=== PATIENT | female | born 2000 | race Caucasian/White ===

== ENCOUNTER 2021-08-22 17:00 | Outpatient (RCR) | payer MEDICAID, SELFPAY | END 2021-09-04 17:34 | disposition home or self-care (01) | LOC: HO.PT 17:00 | PROVIDERS: PCP General Practice; Visit Provider General Practice | DX: M54.9 Dorsalgia, unspecified (principal) | CPT/HCPCS: 97014; 97110; 97161; 97530 ==

== ENCOUNTER 2021-09-06 19:52 | Emergency (ER) | payer MEDICAID, SELFPAY ==
[2021-09-06 20:05] VITALS: BP 128/81; PULSE 95; RESP 18; TEMP 36.4; O2SAT 99; BMI 26.4
[2021-09-06 22:24] VITALS: BP 122/89; PULSE 82; RESP 16; O2SAT 98
--- NOTE | 2021-09-06 23:23 | ED.NAVMDI ---
HPI - Nausea/Vomiting/Diarrhea General Chief complaint: Nausea/Vomiting/Diarrhea Stated complaint: Diarrhea Time Seen by Provider: 09/06/21 23:16 Source: patient Mode of arrival: ambulatory Limitations: no limitations History of Present Illness HPI Narrative: This is a 21-year-old female no known medical history presenting to the emergency department with complaints of diarrhea with blood mixed into it x1 day. Patient reports that some other family members are having the same symptoms after eating spaghetti with beef and at last night. She tells me she has had 2 episodes of diarrhea on 1 of them had blood mixed into the me other 1 had streaks of blood and some blood in the toilet seat. She tells me this has never happened to her before. She denies abdominal pain but tells me that when she is having a bowel movement she feels a crampy sensation in her abdomen. She denies chest pain, shortness of breath, fevers, chills, nausea, vomiting, abdominal pain, back pain, changes in urination, dizziness, weakness. MD elicited complaint: diarrhea Onset (ago): day(s) (1) Description of vomiting: watery and blood-streaked Description of diarrhea: blood Associated nausea: No Associated abdominal pain: No Location of pain: none Exacerbating factors: none Relieving factors: none Associated symptoms: denies other symptoms Related Data Allergies Allergy/AdvReac Type Severity Reaction Status Date / Time No Known Allergies Allergy Unverified 02/03/20 17:11 [No Known Allergies*] Review of Systems Review of Systems: Constitutional : No Weight loss, No Fever, No Chills, No Fatigue, No Malaise ENT/Mouth : No sore throat, No Rhinorrhea Eyes: No Eye Pain, No Swelling, No Redness Cardiovascular : No Chest Pain, No SOB, No Dyspnea on Exertion, No Orthopnea, No Edema, No Palpitations Respiratory : No Cough, No Sputum, No Wheezing Gastrointestinal : No Nausea, No Vomiting, + Diarrhea, No Constipation, No abdominal Pain, No Hematochezia, No Melena Genitourinary : No Dysuria, No Urinary Frequency, No Hematuria, Musculoskeletal : No joint pain, No Myalgias, No Joint Swelling Skin : No Skin Lesions, No rash Neuro : No Weakness, No Numbness, No Dizziness, No Headache Psych : No Anxiety/Panic, No Depression All other systems reviewed and are negative Yes all other systems are reviewed and are negative Gastrointestinal: Gastrointestinal: Denies nausea PMFSH Past Medical History Attestation statement: The following information was validated with the patient. Source: old records reviewed and nursing notes reviewed Social History Social History Advance Directives: No Physical Exam Vital Signs: Vital Signs: Last Vital Signs Temp 97.5 F 09/06/21 20:05 Pulse 82 09/06/21 22:24 Resp 16 09/06/21 22:24 BP 122/89 09/06/21 22:24 Pulse Ox 98 09/06/21 22:24 BMI result Body Mass Index 26.4 Vital signs stable. Appearance: Alert.? Oriented X3.? No acute distress.? Head: Normocephalic, atraumatic, no step-offs or deformities Eyes: Pupils equal, round and reactive to light.? ENT: Pharynx normal.? Neck: Normal inspection.? Neck supple.? CVS: Normal heart rate and rhythm.? Pulses normal.? Respiratory: No respiratory distress.? Breath sounds normal.? Abdomen: Soft and nontender.? Rectal exam: Refused Skin: Skin warm and dry.? Normal skin color.? Normal skin turgor.? Extremities: No lower extremity edema.? No calf ttp. 5/5 strength to bilateral upper and lower extremities Back: No midline tenderness, no C-spine tenderness, full range of motion, no CVA tenderness bilaterally Neuro: Oriented X 3.? No motor deficit.? No sensory deficit. CN 2-12 intact Course Reevaluation(s) Reevaluation #1: CBC within normal limits. Chemistry with no acute electrolyte abnormalities. Urine clean. RUIZ negative. COVID negative. Patient tells me she does not feel like she can have a bowel movement any time soon. Patient's hemoglobin and hematocrit stable, patient tells me she feels well, not having any dizziness, weakness, pallor. Advised her to return with new or worsening symptoms. Upon discharge patient tells me she is feeling fine no abdominal pain, denies chest pain, shortness of breath, weakness, dizziness. Vital signs are stable. This is likely colitis. Time: 00:31 MDM - Nausea/Vomiting/Diarrhea MDM Narrative Medical decision making narrative: 2344 21-year-old female presents with bloody diarrhea x1 day. Reports family members at home with similar symptoms. Physical examination benign. Patient refused a rectal exam. Plan at this time is basic labs, Patient does not have tenderness on palpation, no need for abdominal CT at this time. Medical Records Attestation: I reviewed the patient's medical records. Lab Data Attestation: I reviewed the patient's lab results. Result diagrams: 09/06/21 23:37 09/06/21 23:37 Labs: Lab Results 09/06/21 09/06/21 09/06/21 Range/Units 23:37 23:37 23:37 WBC 6.9 (4.8-10.8) X10*3/uL RBC 4.82 (4.20-5.50) X10*6/uL Hgb 12.8 (12.0-16.0) g/dl Hct 40.3 (37.0-47.0) % MCV 83.6 (80.0-98.0) fL MCH 26.6 L (27.0-33.0) pg MCHC 31.8 (31.0-35.0) g/dl RDW 12.2 (11.0-16.0) % Plt Count 373 (160-400) X10*3/uL MPV 9.5 (9.4-12.3) fL Immature Gran % (Auto) 0.3 (0.0-0.4) % Neut % (Auto) 37.4 L (45-73) % Lymph % (Auto) 48.9 H (20-40) % [place] % (Auto) 10.7 (2-11) % Eos % (Auto) 1.8 (0-4) % Baso % (Auto) 0.9 (0-2) % Lymph # (Auto) 3.4 (1.2-4.9) X10*3/uL [place] # (Auto) 0.7 (0.1-1.2) X10*3/uL Eos # (Auto) 0.1 (0.0-0.4) X10*3/uL Baso # (Auto) 0.1 (0.0-0.2) X10*3/uL Abs Immat Gran (auto) 0.02 (0.00-0.03) X10*3/uL Absolute Neuts (auto) 2.6 (2.0-8.3) x10*3/uL Absolute Nucleated RBC 0.000 (0.0-0.012) X10*3/uL Nucleated RBC % (auto) 0.0 (0.0-0.2) /100WBC Sodium 138 (135-145) mmol/L Potassium 4.2 (3.3-5.1) mmol/L Chloride 107 (96-108) mmol/L Carbon Dioxide 26 (22-29) mmol/L Anion Gap 9 L (12-20) BUN 12 (9-16) mg/dL Creatinine 0.72 (0.5-1.4) mg/dL Estim Creat Clear Calc 106.3 Estimated GFR > 60 Random Glucose 79 (60-115) mg/dL Calcium 9.4 (8.4-10.2) mg/dL Magnesium 2.0 (1.6-2.6) mg/dL Total Bilirubin 0.5 (0.0-1.0) mg/dL AST 19 (5-31) U/L ALT 19 (0-31) U/L Alkaline Phosphatase 90 (39-117) U/L Total Protein 7.3 (6.5-8.0) g/dL Albumin 4.2 (3.5-5.0) g/dL Lipase 6 L (8-78) U/L Urine Color Urine Appearance Urine pH (5.0-8.0) Ur Specific [place] (1.005-1.025) Urine Protein (NEG-TRACE) MG/DL Urine Glucose (UA) (NEG) MG/DL Urine Ketones (NEG) MG/DL Urine Blood (NEG) Urine Nitrite (NEG) Ur Leukocyte Esterase (NEG) Urine Opiates Screen (Not Detect) Urine Fentanyl Screen (Not Detect) Ur Barbiturates Screen (Not Detect) Ur Phencyclidine Scrn (Not Detect) Ur Amphetamines Screen (Not Detect) U Benzodiazepines Scrn (Not Detect) Urine Cocaine Screen (Not Detect) U Marijuana (THC) Screen (Not Detect) COVID-19 (YENNY) Negative (Negative) COVID-19 Clin Com See Note 09/06/21 09/06/21 Range/Units 23:37 23:37 WBC (4.8-10.8) X10*3/uL RBC (4.20-5.50) X10*6/uL Hgb (12.0-16.0) g/dl Hct (37.0-47.0) % MCV (80.0-98.0) fL MCH (27.0-33.0) pg MCHC (31.0-35.0) g/dl RDW (11.0-16.0) % Plt Count (160-400) X10*3/uL MPV (9.4-12.3) fL Immature Gran % (Auto) (0.0-0.4) % Neut % (Auto) (45-73) % Lymph % (Auto) (20-40) % [place] % (Auto) (2-11) % Eos % (Auto) (0-4) % Baso % (Auto) (0-2) % Lymph # (Auto) (1.2-4.9) X10*3/uL [place] # (Auto) (0.1-1.2) X10*3/uL Eos # (Auto) (0.0-0.4) X10*3/uL Baso # (Auto) (0.0-0.2) X10*3/uL Abs Immat Gran (auto) (0.00-0.03) X10*3/uL Absolute Neuts (auto) (2.0-8.3) x10*3/uL Absolute Nucleated RBC (0.0-0.012) X10*3/uL Nucleated RBC % (auto) (0.0-0.2) /100WBC Sodium (135-145) mmol/L Potassium (3.3-5.1) mmol/L Chloride (96-108) mmol/L Carbon Dioxide (22-29) mmol/L Anion Gap (12-20) BUN (9-16) mg/dL Creatinine (0.5-1.4) mg/dL Estim Creat Clear Calc Estimated GFR Random Glucose (60-115) mg/dL Calcium (8.4-10.2) mg/dL Magnesium (1.6-2.6) mg/dL Total Bilirubin (0.0-1.0) mg/dL AST (5-31) U/L ALT (0-31) U/L Alkaline Phosphatase (39-117) U/L Total Protein (6.5-8.0) g/dL Albumin (3.5-5.0) g/dL Lipase (8-78) U/L Urine Color YELLOW Urine Appearance HAZY Urine pH 7.0 (5.0-8.0) Ur Specific [place] 1.020 (1.005-1.025) Urine Protein NEG (NEG-TRACE) MG/DL Urine Glucose (UA) NEG (NEG) MG/DL Urine Ketones NEG (NEG) MG/DL Urine Blood NEG (NEG) Urine Nitrite NEG (NEG) Ur Leukocyte Esterase NEG (NEG) Urine Opiates Screen Not Detected (Not Detect) Urine Fentanyl Screen Not Detected (Not Detect) Ur Barbiturates Screen Not Detected (Not Detect) Ur Phencyclidine Scrn Not Detected (Not Detect) Ur Amphetamines Screen Not Detected (Not Detect) U Benzodiazepines Scrn Not Detected (Not Detect) Urine Cocaine Screen Not Detected (Not Detect) U Marijuana (THC) Screen Not Detected (Not Detect) COVID-19 (YENNY) (Negative) COVID-19 Clin Com Critical Care Time Critical Care Time Critical Care Time: No Discharge Plan Discharge Clinical Impression: Colitis Patient Disposition: Home, Self-Care Instructions: Colitis (ED) Additional Instructions: Take your medications as prescribed. If you were prescribed antibiotics today, it is important that you take your medication to their entirety, do not skip any doses, do not finish them early. Follow-up with your primary care provider this week. If symptoms persist for over a week please visit gastroenterology Return to the emergency department with new or worsening symptoms. Such as fevers, chills, chest pain, shortness of breath, nausea, vomiting, dizziness, headache, vision changes, lethargy, worsening bloody stool, weakness, fatigue, pale skin In case of emergency call 911 Referrals: Brianne Guerrero MD [Primary Care Provider] - 2 days Jordana Cortez MD [Physician] - 2 days Stand Alone Forms: Work/School Release
[2021-09-06 23:45] LABS: Basophils Absolute Auto 0.1 X10*3/uL (0.0-0.2); Basophils Percent Auto 0.9 % (0-2); Eosinophils Absolute Auto 0.1 X10*3/uL (0.0-0.4); Eosinophils Percent Auto 1.8 % (0-4); Hematocrit 40.3 % (37.0-47.0); Hemoglobin 12.8 g/dl (12.0-16.0); Imm Gran Abs Auto 0.02 X10*3/uL (0.00-0.03); Imm Gran Pct Auto 0.3 % (0.0-0.4); Lymphocytes Absolute Auto 3.4 X10*3/uL (1.2-4.9); Lymphocytes Percent Auto 48.9 % (20-40); MANUAL DIFF FLAG NO; Mean Corpuscular HGB Conc 31.8 g/dl (31.0-35.0); Mean Corpuscular Hemoglobin 26.6 pg (27.0-33.0); Mean Corpuscular Volume 83.6 fL (80.0-98.0); Mean Platelet Volume 9.5 fL (9.4-12.3); Monocytes Absolute Auto 0.7 X10*3/uL (0.1-1.2); Monocytes Percent Auto 10.7 % (2-11); Neutrophils Absolute Auto 2.6 x10*3/uL (2.0-8.3); Neutrophils Percent Auto 37.4 % (45-73); Platelet Count 373 X10*3/uL (160-400); Red Blood Count 4.82 X10*6/uL (4.20-5.50); Red Cell Distribution Width 12.2 % (11.0-16.0); White Blood Count 6.9 X10*3/uL (4.8-10.8)
[2021-09-06 23:47] LABS: Appearance Urine HAZY; Color Urine YELLOW; Glucose Urine UA NEG (NEG); Leukocyte Esterase Urine NEG (NEG); Nitrite Urine NEG (NEG); Urine Blood NEG (NEG); Urine Ketones NEG (NEG); Urine Protein NEG (NEG-TRACE)
[2021-09-06 23:59] LABS: COVID-19 Test Negative (Negative)
[2021-09-07 00:12] LABS: Amphetamine Screen Urine Not Detected (Not Detect); Barbiturates, Urine Not Detected (Not Detect); Benzodiazepines Screen Urine Not Detected (Not Detect); Cannabinoid Screen Urine Not Detected (Not Detect); Cocaine Screen Urine Not Detected (Not Detect); Fentanyl, urine Not Detected (Not Detect); Opiate Screen Urine Not Detected (Not Detect); Phencyclidine Screen Urine Not Detected (Not Detect)
[2021-09-07 00:28] LABS: Alanine Aminotransferase 19 U/L (0-31); Albumin Level 4.2 g/dL (3.5-5.0); Alkaline Phosphatase 90 U/L (39-117); Anion Gap 9 (12-20); Aspartate Amino Transferase 19 U/L (5-31); Bilirubin Total 0.5 mg/dL (0.0-1.0); Blood Urea Nitrogen 12 mg/dL (9-16); Calcium 9.4 mg/dL (8.4-10.2); Carbon Dioxide 26 mmol/L (22-29); Chloride 107 mmol/L (96-108); Creatinine Clr Calc Pharmacy 106.3; Estimated Glomerular Filt Rate > 60; Glucose Random 79 mg/dL (60-115); Lipase 6 U/L (8-78); Potassium 4.2 mmol/L (3.3-5.1); Sodium 138 mmol/L (135-145); Total Protein 7.3 g/dL (6.5-8.0)
[2021-09-07] MEDS: 0.9 % Sodium Chloride 1,000 ML 999 ML IV (00:52)
--- NOTE | 2021-09-07 01:18 | PC.NURSE ---
pt over care from [place] operator. Iv placed, labs collect and send. pt resting in bed. no is sign of distress at this time. Will continue to monitor
--- NOTE | 2021-09-07 01:22 | PC.NURSE ---
Last vitals before discharge BP -117/76 (91) MD - 86 O2 - 99
== END 2021-09-07 01:16 | disposition home or self-care (01) ==
PROVIDERS: Physician Assistant; Emergency Provider Internal Medicine; PCP General Practice
DX: K52.9 Noninfective gastroenteritis and colitis, unspecified (principal); R11.2 Nausea with vomiting, unspecified; Z20.822 Contact with and (suspected) exposure to COVID-19; Z79.899 Other long term (current) drug therapy
CPT/HCPCS: 36415; 80053; 80307; 81003; 83690; 83735; 85025; 87635; 96360; 99284

== ENCOUNTER → 2021-12-07 14:05 | Outpatient (BNVA) | payer MEDICAID, SELFPAY | PROVIDERS: PCP General Practice; Visit Provider Surgery | DX: D17.1 Benign lipomatous neoplasm of skin and subcutaneous tissue of trunk (principal) | CPT/HCPCS: 99202 ==

== ENCOUNTER → 2022-04-19 10:41 | Outpatient (BNVA) | payer MEDICAID, SELFPAY | PROVIDERS: PCP Family Medicine; Visit Provider Surgery | DX: D17.1 Benign lipomatous neoplasm of skin and subcutaneous tissue of trunk (principal) | CPT/HCPCS: 99212 ==

== ENCOUNTER 2023-02-11 16:00 | Outpatient (RCR) | payer MEDICAID, SELFPAY | END 2023-02-11 16:59 | disposition home or self-care (01) | LOC: HO.PT 16:00 | PROVIDERS: PCP Family Medicine; Visit Provider Family Medicine | DX: M54.9 Dorsalgia, unspecified (principal) | CPT/HCPCS: 97110; 97112; 97140; 97161; 97530 ==

== ENCOUNTER 2023-02-17 09:52 | Outpatient (REF) | payer MEDICAID, SELFPAY ==
[2023-02-17 15:10] LABS: Alanine Aminotransferase 21 U/L (0-31); Albumin Level 4.2 g/dL (3.5-5.0); Alkaline Phosphatase 57 U/L (39-117); Aspartate Amino Transferase 22 U/L (5-31); Bilirubin Direct 0.2 mg/dL (0.0-0.5); Bilirubin Total 0.4 mg/dL (0.0-1.0); Total Protein 7.4 g/dL (6.5-8.0)
[2023-02-19 16:48] LABS: TS Negative Control Passed; TS Panel A 0; TS Panel B 0; TS Positive Control Passed; TSpotTB Negative (Negative)
== END 2023-02-17 09:53 | disposition home or self-care (01) ==
LOC: HO.CHCLDS 09:52
PROVIDERS: Visit Provider Family Medicine
DX: Z11.1 Encounter for screening for respiratory tuberculosis (principal); Z13.30 Encounter for screening examination for mental health and behavioral disorders, unspecified
CPT/HCPCS: 36415; 80076; 86481

== ENCOUNTER 2023-04-24 | Outpatient (REF) | payer MEDICAID, SELFPAY | END 2023-04-24 00:01 | disposition home or self-care (01) | LOC: HO.CHCLNP | PROVIDERS: Visit Provider Family Medicine | DX: Z12.4 Encounter for screening for malignant neoplasm of cervix (principal) | CPT/HCPCS: 88142 ==

== ENCOUNTER 2024-01-22 17:35 | Outpatient (REF) | payer MEDICAID, SELFPAY ==
[2024-01-23 02:44] LABS: CT PCR NOT DETECTED (Not Detect.); NG PCR NOT DETECTED (Not Detect.)
[2024-01-23 11:03] LABS: Bacterial Vaginosis PCR POSITIVE (Negative); Candida Group PCR NOT DETECTED (Not Detect); Candida glab krusei PCR NOT DETECTED (Not Detect); Trichomonas vaginalis PCR NOT DETECTED (Not Detect)
== END 2024-01-22 17:36 | disposition home or self-care (01) ==
LOC: HO.CHCLNP 17:35
PROVIDERS: Visit Provider Internal Medicine
DX: N92.3 Ovulation bleeding (principal)
CPT/HCPCS: 0352U; 87491; 87591

== ENCOUNTER 2024-01-23 16:52 | Emergency (ER) | payer MEDICAID, SELFPAY ==
[2024-01-23 17:21] VITALS: BP 115/79; PULSE 79; RESP 18; TEMP 37; O2SAT 100; BMI 26.7
--- NOTE | 2024-01-23 17:24 | ED.GENADULT ---
HPI - General Adult General Chief complaint: Vaginal Bleeding Stated complaint: bleeding for two weeks, hasn't slowed down Time Seen by Provider: 01/23/24 22:18 History of Present Illness ED Provider: Natalie MAN narrative: The patient is a 23-year-old female who says that an early November she used Plan B. she says that at the end of November or early December she had vaginal bleeding that she thought was a normal period. However in mid December she started to have vaginal bleeding that was unexpected and not consistent with her usual timing for menses. She has had about 2 weeks of persistent vaginal bleeding. She says the vaginal bleeding is not particularly heavy, it is like typical menstrual bleeding, however it is alarming that it is persisting so long. She went to the [facility] yesterday and had a negative test and she self swabbed for sexually transmitted infection testing. She was referred to another practitioner at the [facility] later in the month. However she is concerned that she is still having the bleeding and came to the emergency room tonight. She has not had any particular pain or discomfort with this ongoing bleeding. No fever, sweats, chills. No other vaginal discharge. Related Data Home Medications ?Medication ?Instructions ?Recorded ?Confirmed drospirenone 3 mg-ethinyl 1 tab PO DAILY 12/07/21 12/07/21 estradiol 0.03 mg tablet (Sol) levonorgestrel 1.5 mg tablet 1.5 mg PO DAILY PRN 12/07/21 12/07/21 (Aftera) Previous Rx's ?Medication ?Instructions ?Recorded tranexamic acid 650 mg tablet 1,300 mg (2 x 650 mg) PO TID 5 01/23/24 days #30 tabs Allergies Allergy/AdvReac Type Severity Reaction Status Date / Time No Known Allergies Allergy Verified 01/23/24 17:23 [No Known Allergies*] Review of Systems Review of Systems: Yes all other systems are reviewed and are negative PMFSH Social History Social History (Reviewed 04/19/22 @ 11:11 by Bandar Mora MD, FACS, [facility]) Advance Directives: No Advance Directives Information Provided: No Do you have a plan to hurt others: No Plan Physical Exam ED Vital Signs: Vital Signs - 24 hr 01/23/24 17:21 01/23/24 20:43 Temperature 98.6 F 98.1 F Pulse Rate 79 104 H Respiratory Rate 18 20 Blood Pressure 115/79 122/87 Pulse Oximetry 100 100 Oxygen Delivery Method Room Air Room Air BMI result Body Mass Index 26.7 Const Other: the patient is awake and alert. She has appearance of a not really healthy 23-year-old. She does not appear ill or unwell in any way. HENMT Head: Yes normal to inspection Face and sinus: Yes normal facial exam Mouth: Normal oral and palatal mucosa present Eyes General: appearance normal, both eyes and all related structures Neck Neck: Yes normal visual inspection and Yes full ROM Resp Effort & Inspection: normal respiratory effort Auscultation: clear to auscultation bilaterally Cardio Rate: regular rate Rhythm: regular rhythm Heart sounds: S1 normal heart sound present and S2 normal heart sound present GI Other: The abdomen is flat, soft, nontender. Skin Other: Skin is dry and unremarkable. Neuro Other: The patient is awake and alert with normal mental status. She has a nontoxic demeanor. Cranial nerves are grossly intact. She moves her extremities normally and appropriately. Extrem Other: no peripheral edema. Course Course Course Narrative: RME performed by Tiana Vazquez PA-C. Patient is a 23 year old assigned female at presenting to the emergency department with vaginal bleeding. Patient states that she has had her period for the last 2 weeks and had it 2 weeks before that. Patient states that it is heavier than usual. Detailed physical exam and review of systems are deferred to the medical and scientific illustrator. Labs ordered. Patient placed back in the waiting room pending room availability and results. Medical Decision Making Medical Decision Making MDM Narrative: The patient is an ordinarily healthy 23-year-old who presents for abnormal vaginal bleeding of approximately 2 weeks duration. She seems to relate the abnormal bleeding to using plan be about 6 or 7 weeks ago. She describes persistent vaginal bleeding but not very heavy vaginal bleeding. Her CBC shows an unremarkable hemoglobin. Clinically the patient looks quite well. Her test is negative. The patient said that she does not wish to go on any control medication. Given her description of the symptoms and her reassuring blood work and her benign physical exam I think a speculum exam would probably not add much to her evaluation. She will be given an injection of ketorolac and a prescription for tranexamic acid. She is given the contact information for the [facility] office. She should follow up with Gynecology. Lab Data 01/23/24 17:28 01/23/24 17:28 Labs: Lab Results 01/23/24 01/23/24 Range/Units 17:28 17:46 WBC 6.6 (4.8-10.8) X10*3/uL RBC 4.64 (4.20-5.50) X10*6/uL Hgb 12.3 (12.0-16.0) g/dl Hct 37.9 (37.0-47.0) % MCV 81.7 (80.0-98.0) fL MCH 26.5 L (27.0-33.0) pg MCHC 32.5 (31.0-35.0) g/dl RDW 12.8 (11.0-16.0) % Plt Count 387 (160-400) X10*3/uL MPV 9.2 L (9.4-12.3) fL Immature Gran % (Auto) 0.5 H (0.0-0.4) % Neut % (Auto) 41.6 L (45-73) % Lymph % (Auto) 46.1 H (20-40) % [place] % (Auto) 8.6 (2-11) % Eos % (Auto) 2.3 (0-4) % Baso % (Auto) 0.9 (0-2) % Lymph # (Auto) 3.1 (1.2-4.9) X10*3/uL [place] # (Auto) 0.6 (0.1-1.2) X10*3/uL Eos # (Auto) 0.2 (0.0-0.4) X10*3/uL Baso # (Auto) 0.1 (0.0-0.2) X10*3/uL Abs Immat Gran (auto) 0.03 (0.00-0.03) X10*3/uL Absolute Neuts (auto) 2.8 (2.0-8.3) x10*3/uL Absolute Nucleated RBC 0.000 (0.0-0.012) X10*3/uL Nucleated RBC % (auto) 0.0 (0.0-0.2) /100WBC Sodium 140 (135-145) mmol/L Potassium 3.4 (3.3-5.1) mmol/L Chloride 106 (96-108) mmol/L Carbon Dioxide 22 (22-29) mmol/L Anion Gap 15 (12-20) BUN 16 (9-16) mg/dL Creatinine 0.85 (0.5-1.4) mg/dL Estim Creat Clear Calc 88.9 Estimated GFR > 60 Random Glucose 89 (60-115) mg/dL Calcium 9.2 (8.4-10.2) mg/dL Magnesium 1.9 (1.6-2.6) mg/dL Total Bilirubin 0.2 (0.0-1.0) mg/dL AST 13 (5-31) U/L ALT 11 (0-31) U/L Alkaline Phosphatase 67 (39-117) U/L Total Protein 7.6 (6.5-8.0) g/dL Albumin 4.2 (3.5-5.0) g/dL Beta HCG, Quant < 2 mIU/mL Urine Color Yellow Urine Appearance Clear Urine pH 6.5 (5.0-9.0) Ur Specific [place] >= 1.030 H (1.005-1.025) Urine Protein Trace (Neg-Trace) mg/dL Urine Glucose (UA) Negative (Negative) mg/dL Urine Ketones Trace (Negative) mg/dL Urine Blood Large (3+) H (Negative) Urine Nitrite Negative (Negative) Ur Leukocyte Esterase Negative (Negative) Urine RBC >20 H (0-2) /HPF Urine WBC 0-5 (0-5) /HPF Ur Squamous Epith Cells 0-2 (0-2) /HPF Urine Bacteria None Seen (None Seen) Hyaline Casts 0-2 (0-2) /LPF Discharge Plan Discharge Clinical Impression: Abnormal vaginal bleeding Patient Disposition: Home, Self-Care Additional Instructions: Your testing today shows that you were not and that your blood counts are good. You received an injection of a medication called Toradol which can help reduce vaginal bleeding. I have sent a prescription for medication called TXA to your pharmacy. Please take this medication 3 times a day for 5 days. This medication has been shown to vaginal bleeding. Please contact the Gynecology office (Dr. Holley's office) on Friday to arrange an appointment with a pcb designer to discuss this further. Return to the emergency room if you feel significantly worse. Prescriptions: New tranexamic acid 650 mg tablet 1,300 mg PO TID 5 Days Qty: 30 0RF No Action levonorgestrel [Aftera] 1.5 mg tablet 1.5 mg PO DAILY PRN drospirenone-ethinyl estradiol [Sol] 3-0.03 mg tablet 1 tab PO DAILY Referrals: Reji Holley MD [Physician] - (Abnormal vaginal bleeding after using Plan B) Interventions: ED Discharge Assessment Last Done: 01/23/24 22:42 Discharge Date/Time: 01/23/24 22:43 Print Language: Upper Sorbian
[2024-01-23 17:32] LABS: MANUAL DIFF FLAG NO
[2024-01-23 17:36] LABS: Basophils Absolute Auto 0.1 X10*3/uL (0.0-0.2); Basophils Percent Auto 0.9 % (0-2); Eosinophils Absolute Auto 0.2 X10*3/uL (0.0-0.4); Eosinophils Percent Auto 2.3 % (0-4); Hematocrit 37.9 % (37.0-47.0); Hemoglobin 12.3 g/dl (12.0-16.0); Imm Gran Abs Auto 0.03 X10*3/uL (0.00-0.03); Imm Gran Pct Auto 0.5 % (0.0-0.4); Lymphocytes Absolute Auto 3.1 X10*3/uL (1.2-4.9); Lymphocytes Percent Auto 46.1 % (20-40); Mean Corpuscular HGB Conc 32.5 g/dl (31.0-35.0); Mean Corpuscular Hemoglobin 26.5 pg (27.0-33.0); Mean Corpuscular Volume 81.7 fL (80.0-98.0); Mean Platelet Volume 9.2 fL (9.4-12.3); Monocytes Absolute Auto 0.6 X10*3/uL (0.1-1.2); Monocytes Percent Auto 8.6 % (2-11); Neutrophils Absolute Auto 2.8 x10*3/uL (2.0-8.3); Neutrophils Percent Auto 41.6 % (45-73); Platelet Count 387 X10*3/uL (160-400); Red Blood Count 4.64 X10*6/uL (4.20-5.50); Red Cell Distribution Width 12.8 % (11.0-16.0); White Blood Count 6.6 X10*3/uL (4.8-10.8)
[2024-01-23 17:55] LABS: Appearance Urine Clear; Color Urine Yellow; Glucose Urine UA Negative (Negative); Leukocyte Esterase Urine Negative (Negative); Nitrite Urine Negative (Negative); PH 6.5 (5.0-9.0); Specific Gravity - Urine >= 1.030 (1.005-1.025); UMIC TRIGGER UACC YES; Urine Blood Large (3+) (Negative); Urine Ketones Trace mg/dL (Negative); Urine Protein Trace mg/dL (Neg-Trace)
[2024-01-23 17:59] LABS: Alanine Aminotransferase 11 U/L (0-31); Albumin Level 4.2 g/dL (3.5-5.0); Alkaline Phosphatase 67 U/L (39-117); Anion Gap 15 (12-20); Aspartate Amino Transferase 13 U/L (5-31); Bilirubin Total 0.2 mg/dL (0.0-1.0); Blood Urea Nitrogen 16 mg/dL (9-16); Calcium 9.2 mg/dL (8.4-10.2); Carbon Dioxide 22 mmol/L (22-29); Chloride 106 mmol/L (96-108); Creatinine Clr Calc Pharmacy 88.9; Estimated Glomerular Filt Rate > 60; Glucose Random 89 mg/dL (60-115); HCG Quantitative < 2 mIU/mL; Magnesium 1.9 mg/dL (1.6-2.6); Potassium 3.4 mmol/L (3.3-5.1); Sodium 140 mmol/L (135-145); Total Protein 7.6 g/dL (6.5-8.0)
[2024-01-23 18:07] LABS: Bacteria Urine None Seen (None Seen); Hyaline Casts Urine 0-2 /LPF (0-2); RBC Urine >20 /HPF (0-2); Squamous Epithelial Cell Urine 0-2 /HPF (0-2); WBC Urine 0-5 /HPF (0-5)
[2024-01-23 20:43] VITALS: BP 122/87; PULSE 104; RESP 20; TEMP 36.7; O2SAT 100
[2024-01-23 22:41] VITALS: BP 125/85; PULSE 92; RESP 20; TEMP 37; O2SAT 97
[2024-01-23 22:42] VITALS: BP 125/85; PULSE 92; RESP 20; TEMP 37; O2SAT 97
== END 2024-01-23 22:43 | disposition home or self-care (01) ==
PROVIDERS: Physician Assistant Medical; Emergency Provider Emergency Medicine; PCP Family Medicine
DX: N93.8 Other specified abnormal uterine and vaginal bleeding (principal)
CPT/HCPCS: 36415; 80053; 81001; 83735; 84702; 85025; 99283

== ENCOUNTER 2024-02-03 13:38 | Outpatient (REF) | payer MEDICAID, SELFPAY ==
[2024-02-03 16:31] LABS: MANUAL DIFF FLAG NO
[2024-02-03 16:36] LABS: Basophils Absolute Auto 0.1 X10*3/uL (0.0-0.2); Basophils Percent Auto 1.2 % (0-2); Eosinophils Absolute Auto 0.1 X10*3/uL (0.0-0.4); Eosinophils Percent Auto 1.8 % (0-4); Hematocrit 36.1 % (37.0-47.0); Hemoglobin 11.5 g/dl (12.0-16.0); Imm Gran Abs Auto 0.03 X10*3/uL (0.00-0.03); Imm Gran Pct Auto 0.5 % (0.0-0.4); Lymphocytes Absolute Auto 2.7 X10*3/uL (1.2-4.9); Lymphocytes Percent Auto 45.1 % (20-40); Mean Corpuscular HGB Conc 31.9 g/dl (31.0-35.0); Mean Corpuscular Hemoglobin 26.8 pg (27.0-33.0); Mean Corpuscular Volume 84.1 fL (80.0-98.0); Mean Platelet Volume 9.8 fL (9.4-12.3); Monocytes Absolute Auto 0.7 X10*3/uL (0.1-1.2); Monocytes Percent Auto 11.7 % (2-11); Neutrophils Absolute Auto 2.4 x10*3/uL (2.0-8.3); Neutrophils Percent Auto 39.7 % (45-73); Platelet Count 376 X10*3/uL (160-400); Red Blood Count 4.29 X10*6/uL (4.20-5.50); Red Cell Distribution Width 12.9 % (11.0-16.0); White Blood Count 6.1 X10*3/uL (4.8-10.8)
== END 2024-02-03 13:39 | disposition home or self-care (01) ==
LOC: HO.HHCL 13:38
PROVIDERS: Visit Provider Internal Medicine
DX: N92.3 Ovulation bleeding (principal)
CPT/HCPCS: 36415; 84443; 85025

== ENCOUNTER 2024-03-17 12:24 | Outpatient (REF) | payer MEDICAID, SELFPAY | END 2024-03-17 12:25 | disposition home or self-care (01) | LOC: HO.HHCLNP 12:24 | PROVIDERS: Visit Provider Internal Medicine | DX: R39.198 Other difficulties with micturition (principal) | CPT/HCPCS: 87086 ==

== ENCOUNTER 2024-06-21 13:07 | Outpatient (AMB) | payer MEDICAID, SELFPAY ==
--- NOTE | 2024-06-21 13:09 | A.OFFVIS_ITS ---
Vital Signs 06/21/24 13:17 Height 5 ft 1 in Weight 154 lb BMI 29.1 BP 120/80 Blood Pressure Location Rt brachial Position Sitting Pulse 94 Intake Visit Reasons: Mass on back Intake Note: Patient referred by pcp Dr. Quarles for lipoma on Lt upper back. Present for yrs. Patient c/o: enlarging. Denies pain. No prior trauma. Internship Coordinator Required: No Accompanied by: Self / Same As Patient Allergies No Known Allergies [No Known Allergies*] Allergy (Verified 06/21/24 13:14) HPI Comments Details: Patient presents with 2 lipomas which are both increasing in size and becoming more symptomatic. She would like to have them removed. She was seen by surgery few years ago and did not follow-up for formal excision. Because of significant increasing in size, patient now re- presents for evaluation. She has no such lesions elsewhere Chart was reviewed and patient evaluated [facility] Medical History Amenorrhea Surgical History (Updated 06/21/24 @ 13:25 by Zachary Parra MD) Hx of breast reduction, elective (06/19/23) Social History Alcohol intake: never Patient Tobacco Use Status: Never used Tobacco Second Hand Smoke Exposure: No Substance Use Type: Marijuana Current occupational status: unemployed Sexually active: Yes Sexual orientation: Straight/Heterosexual Gender identity: Female Physical Exam Vital Signs: Last Vital Signs Pulse 94 06/21/24 13:17 BP 120/80 06/21/24 13:17 BMI result Body Mass Index 29.1 Chest Other: Chest breath sounds bilaterally, HS 1 in 2. Patient has a large roughly 15 x 8 cm left upper back lipoma. She has a 2nd right lower back lipoma measuring 8 x 4 cm GI Other: Abdomen mildly corpulent, soft, benign Assessment & Plan Assessment & Plan (1) Lipoma of back: Code(s): D17.1 - Benign lipomatous neoplasm of skin and subcutaneous tissue of trunk Category: Surgical Plan Risks, benefits, alternatives of excision of left upper back and right lower back lipomas were reviewed with the patient and included but not limited to bleeding, infection, recurrence, numbness, pain, scarring/keloid/hypertrophic scar, seroma formation, wound dehiscence and the patient wishes to proceed. All questions answered. Arrangements were made for this on a day which is convenient for her. Coding Level of Care Code New Pt Level 5 (29181) Diagnoses Lipoma of back D17.1
[2024-06-21 13:17] VITALS: BP 120/80; PULSE 94; BMI 29.1
--- OUTSIDE RECORDS SUMMARY | 2024-06-21 14:26 | XMS_ITS | Clinical Summary ---
Author Organization [employer] Address [address] [facility] [address] [place] [address] Care Team Providers Care Lean Six [employer] Senior Specialist Name Role Phone Melida Quarles MD Primary Care Provider [phone] Allergies Active Allergy Reactions Criticality Noted Date Comments Bee Pollen Anaphylaxis High 05/22/2020 Yellow Jacket Venom 12/14/2021 Allergic to bees Medications clotrimazole (Lotrimin) 1 % cream Apply topically every 12 (twelve) hours. 2 Active EPINEPHrine (EpiPen 2-Gartet) 0.3 MG/0.3ML injection syringe Inject 0.3 mL into the shoulder, thigh, or buttocks. 2 Active terbinafine (LamISIL AT) 1 % cream Apply topically 2 times daily. 42 g 3 Active prochlorperazin e (Compazine) 5 MG tablet TAKE 1 TABLET (5 MG TOTAL) BY MOUTH EVERY 6 (SIX) HOURS IF NEEDED FOR NAUSEA OR VOMITING. 3 Active ibuprofen 800 MG tablet TAKE 1 TABLET (800 MG) BY MOUTH EVERY 8 HOURS NEEDED FOR PAIN (MILD/MODERATE ) FOR UP TO 10 DAYS 3 Active tranexamic acid (Lysteda) 650 MG tablet tablet TAKE 2 TABLETS BY MOUTH 3 TIMES A DAY FOR 5 DAYS 4 Active Active Problems Problem Noted Date Diagnosed Date Amenorrhea 04/14/2024 Assessment & Plan (04/14/2024 9:29 AM EST): Negative UA , ordering lab work for further evaluation. Follow up if menses has not begun after 2 months from today. Subcutaneous mass of back 04/14/2024 Assessment & Plan (04/14/2024 9:17 AM EST): Left upper back with subcutaneous mobile mass likely lipoma 6.0 cm x 6.5 cm. , missed appt for surgery, needs new referral to surgery, send to [facility] Overweight 04/14/2024 Assessment & Plan (04/14/2024 9:43 AM EST): Discussed calorie deficit, recommended reduction of 20-30% of maintenance calories; security lead referral offered. Recommended to decrease soda and sugary beverage consumption. Recommended at least 20 g per meal of protein to assist with satiety. Recommended at least 150 min/week of moderate intensity exercise. Cystitis 03/17/2024 Assessment & Plan (03/17/2024 7:40 PM EDT): No evidence of UTI, will order culture. RO IC. Treat with Pyridium, will call back prn if she needs abs Advised re increased water intake, avoid caffeine, nicotine, spicy foods, artificial sweeteners Fu with PCP Cervical cancer screening 04/24/2023 Assessment & Plan (05/02/2023 2:36 PM EST): Adult female for ROTOR PILOT physical: Normal Exam, no sign of infections or any abnormal findings. FU PAP results and repeat following ASCCP guidelines Routine PAP/Gen probe GC/chlam obtained. FU results. No concerns for domestic violence. COVID-19 03/25/2023 Assessment & Plan (03/25/2023 3:34 PM EST): Patient with URI symptoms will be prescribed Paxlovid therapy pack. Tuberculosis screening 02/17/2023 Assessment & Plan (02/17/2023 9:34 AM EDT): Will send t spot, recommended leaving document in medical records Upper back pain 11/08/2022 Assessment & Plan (11/08/2022 11:43 AM EDT): Patient with persistent upper back pain associated with macromastia. Will refer to physical therapy. Macromastia 11/08/2022 Assessment & Plan (02/17/2023 9:33 AM EDT): Patient with macromastia, failed PT, resent referral for plastic surgery to discuss reduction as a method to help with her upper back pain given her macromastia. Assessment & Plan (11/08/2022 11:43 AM EDT): Patient with complaints of macromastia with asociated upper back pain. Will send to plastic surgeon and physical therapy for further evaluation. Resolved Problems Problem Noted Date Diagnosed Date Resolved Date Underweight 04/14/2024 04/14/2024 Assessment & Plan (04/14/2024 9:13 AM EST): Discussed calorie deficit, recommended reduction of 20-30% of maintenance calories; security lead referral offered. Recommended to decrease soda and sugary beverage consumption. Recommended at least 20 g per meal of protein to assist with satiety. Recommended at least 150 min/week of moderate intensity exercise. Encounters Date Type Department Care Team Description 05/04/2024 Telephone [place] [employer] [facility] [address] [place] [address] Melida Quarles MD 05/04/2024 Telephone [place] [employer] [facility] [address] [place] [address] Melida Quarles MD 04/14/2024 9:00 AM EST Office Visit [facility] MED & PEDS [address] [place], [place] [phone] Melida Quarles MD Amenorrhea (Primary Dx); Dietary counseling; Exercise counseling; Underweight; Subcutaneous mass of back; Encounter for immunization; Overweight; Allergy, initial encounter 04/14/2024 Travel 04/13/2024 Telephone [facility] MEDICINE [address] [place] [address] Melida Quarles MD Nurse Triage from Last 3 Months Immunizations Name Administration Dates Next Due DTaP 08/23/2005, 4,02/09/2002,2001,2001 Hep B Immune Globulin 09/13/2003,2001 Hep B, adult 09/13/2003,2001,2001 HiB, unspecified 09/13/2003,2001 Hib (PRP-T) 2001 IPV 08/23/2005, 2,2001,2001 Influenza injectable quadriv alent preservative free 02/17/2023,03/29/2022,06/06/2020 Influenza, Unspecified 03/29/2022,05/25/2021 Influenza, seasonal, injecta ble, preservative free 03/10/2024 MMR 08/23/2005,09/13/2003 Moderna Covid-19 Vaccine 6+ Bivalent 03/27/2022 Pfizer Covid-19 Vaccine 12+ 06/06/2021 Tdap 04/14/2024,07/20/2013 Varicella 07/20/2013,06/17/2012 Social History Tobacco Use Types Packs/Day Years Used Date Smoking Tobacco: Never Passive Smoke Exposure: Never Smokeless Tobacco: Never Alcohol Use Standard Drinks/Week Comments Not Currently 0 (1 standard drink = 0.6 oz pur e alcohol) Depression Answer Date Recorded Patient Health Questionnaire-9 Score 2 11/08/2022 Housing Stability Answer Date Recorded What is your housing situation today? I have lily melvin 03/14/[address] you li ve. Do you have problems with any of the following? None of the above 03/14/2023 Food Insecurity Answer Date Recorded Within the past 12 months, y ou worried that your food would run out before you got money to buy more: Never True 03/14/2023 Within the past 12 months,th e food you bought just didn't last and you didn't have enough money to get more: Never True Transportation Answer Date Recorded In the past 12 months, has l ack of transportation kept you from medical appts, meetings, work or from getting things needed for daily living? No 03/14/2023 Utilities Answer Date Recorded In the past 12 months, has t he electric, gas, oil or water company threatened to shut off services in your home? No 03/14/2023 Depression Answer Date Recorded Patient Health Questionnaire-2 Score 1 11/08/2022 Comments No Sex and Gender Information Value Date Recorded Sex Assigned at Female 03/18/2022 10:17 AM EDT Legal Sex Female 10:17 AM EDT Gender Identity Female 11/08/2022 4:18 PM EDT Sexual Orientation Straight 11/08/2022 4: 18 PM EDT Last Filed Vital Signs Vital Sign Reading Time Taken Comments Blood Pressure 116/74 04/14/2024 9:04 AM EST Pulse 82 04/14/2024 9:04 AM EST Temperature 37.1 ??C (98.7 ??F) 04/14/2024 9:04 AM ES T Respiratory Rate 20 04/14/2024 9:04 AM EST Oxygen Saturation 98% 04/14/2024 9:04 AM EST Inhaled Oxygen Concentration - - Weight 70.8 kg (156 lb) 04/14/2024 9:04 AM EST Height 156 cm (5' 1.42 ) 04/14/2024 9:04 AM EST Body Mass Index 29.08 04/14/2024 9:04 AM EST Plan of Treatment Upcoming Encounters Date Type Department Care Team (Late st Contact Info) Description 07/20/2024 1:45 PM EST Office Visit [facility] OPTOMETRY [address] [place] [address] Holly Walls, OD [address] [place] [address] Health Maintenance Due Date Last Done Comments HPV Vaccines (1 - 3-dose series) 2016 Hepatitis C Screening 08/02/2019 Depression Screening 11/09/2023 11/08/2022, 11/09/19 23 SDOH Screening 11/09/2023 11/08/2022 COVID-19 Vaccine ( season) 2024 03/27/2022, 06/06/2021, 05/15/2021 Chlamydia and Gonorrhea Screening 01/21/2025 01/22/2024, 11/27/2021 Family Planning (PISQ) 02/02/2025 02/03/2024 Tobacco Screening 03/17/2025 03/17/2024 Alcohol/Substance Use Screening 04/14/2025 04/14/2024 Pap Smear 04/24/2026 04/24/2023 DTaP/Tdap/Td Vaccines (8 - Td or Tdap) 04/14/2034 04/14/2024, 07/20/2013, 08/23/2005, Additional history exists Zoster Vaccines (1 of 2) 08/02/2051 RSV Patients and Patients Aged 60 years or older (1 - 1-dose 75+ series) 2076 HIB Vaccines Completed 09/13/2003, 11/17, 2001 Hepatitis B Vaccines Completed 09/13/2003, 2001, 2001 IPV Vaccines Completed 08/23/2005, 01/18, 2001, Additional history exists HIV Screening Completed 02/06/2022, 11/27/2021 Influenza Vaccine Completed 03/10/2024, , 03/29/2022, Additional history exists Hepatitis A Vaccines Aged Out No long er eligible based on patient's age to complete this topic Meningococcal Vaccine Aged Out No guero alicia eligible based on patient's age to complete this topic Pneumococcal Vaccine: Pediatrics (0 to 5 Years) and At-Risk Patients (6 to 49) Years) Aged Out No longer eligible based on patient's age to complete this topic RSV under 20 months Aged Out No longe r eligible based on patient's age to complete this topic Rotavirus Vaccines Aged Out No longer eligible based on patient's age to complete this topic Procedures Procedure Name Priority Date/Time Associated Diagnosis Comments POCT , URINE Routine 04/14/2024 9:17 AM EST Amenorrhea CHLAMYDIA/N. GONORRHOEAE RNA, TMA, UROGENITAL Routine 01/22/2024 4:28 PM EDT Intermenstrual bleeding PAP SMEAR Routine 04/24/2023 2:54 PM EST Cervical cancer screening HIV 1/2 ANTIGEN/ANTIBODY, FOURTH GENERATION W/RFL Routine 02/06/2022 8:46 AM EDT from Last 3 Months or Most Recently Relevant to Health Maintenance Results * POCT Urine (04/14/2024 9:17 AM EST) Preg Test, Ur Negative Negative, Indeterminate, None Detected, Invalid, Specimen unsatisfactory for evaluation, Weakly Positive QC Media Lot # [id number] Lot# Expiration Date ,[id number] Urine 04/14/2024 9:1 7 AM EST Melida Quarles MD POINT OF CARE TEST ENTER/EDIT ORDERABLES Final Result * Chlamydia/N. Gonorrhoeae RNA, TMA, Urogenitial (01/22/2024 4:28 PM EDT) CT PCR NOT DETECTED Not Detect. [facility] Comment:A not detected test result does not exclude the possibilityof infection because test results can be affected byimproper specimen collection, concurrent antibiotic therapy,or the number of organisms in the specimen which may bebelow the sensitivity of the test. As with many diagnostictests, results from the Xpert CT/NG assay should beinterpreted in conjunction with other laboratory andclinical data available to the clinician.Xpert CT/NG performance has not been evaluated in patientsless than 14 years of age. The assay should not be used forthe evaluationof suspected sexual abuse or for other medico-legalindications. Additional testing is recommended in anycircumstance when false positive or false negative resultscould lead to adverse medical, social or psychologicalconsequences. NG PCR NOT DETECTED Not Detect. [facility] Comment:A not detected test result does not exclude the possibilityof infection because test results can be affected byimproper specimen collection, concurrent antibiotic therapy,or the number of organisms in the specimen which may bebelow the sensitivity of the test. As with many diagnostictests, results from the Xpert CT/NG assay should beinterpreted in conjunction with other laboratory andclinical data available to the clinician.Xpert CT/NG performance has not been evaluated in patientsless than 14 years of age. The assay should not be used forthe evaluationof suspected sexual abuse or for other medico-legalindications. Additional testing is recommended in anycircumstance when false positive or false negative resultscould lead to adverse medical, social or psychologicalconsequences. Swab (Vaginal Swab) 01/22/2024 4:28 PM EDT 01/22/2024 5:37 PM EDT [facility] - 01/23/2024 2:45 AM EDT Vaginal us Natacha Hall MD LAB MICROBIOLOGY - GENERAL OR DERABLES Final Result Performing Organization Address City/State/[facility] Co de Phone Number [facility] [address] [place] [phone] * Pap Smear (04/24/2023 2:54 PM EST) Swab Cervical swab / Unknown 04/24/2023 2:54 PM EST 04/28/2023 8:50 AM EST [facility] - 04/30/2023 10:30 AM EST ----- ------- Name: Lynette Mcguire ?Age/Sex: 22/F ? : 2000 Unit#: [id number] ?? Attend Dr: ?Re04/24/23 ?Status: PRE REF ? Location: HO.LNP ?Disch: ? ----- ------- SPEC : [id number] ?RECD: 04/28/23 ? STATUS: ??SOUT ? REQ NUM: [id number] ? MONTRELL: 04/24/23 ? SUBM DR: Melida Quarles MD ? ENTERED: ??04/28/23 ?SP TYPE: Pap Smr ?OTHR : ? ORDERED: ??Pap Smear ? Interpretation ?? Satisfactory for evaluation. ?? Coccobacilli consistent with shift in vaginal nallely. ?? Mild inflammation. ?? Negative for intraepithelial lesion or malignancy. ?Clinical Information LMP: 04/11/2023 Previous PAP test: Unknown date/findings ? Material Received ?? ThinPrep-Cervical ----- ------- Signed (signature on file) BJ Hunt ([facility]) 04/30/23 1030 ? ----- ------- ? END OF REPORT ? us Melida Quarlse MD LAB CYTOLOGY ORDERABLES Final Result [facility] [address] [place] [phone] * HIV 1/2 ANTIGEN/ANTIBODY,FOURTH GENERATION W/RFL (02/06/2022 8:46 AM EDT) [facility] HIV-1/2 ANTIGEN AND ANTIBODIES, 4TH GENERATION W/ REFLEX NON-REACT CHRISTIE NON-REACT CHRISTIE [facility] Comment: HIV-1 antigen and HIV-1/HIV-2 antibodies were not detected. There is no laboratory evidence of HIV infection. ?? PLEASE NOTE: This information has been disclosed to you from records whose confidentiality may be protected by state law. ??If your state requires such protection, then the state law prohibits you from making any further disclosure of the information without the specific written consent of the person to whom it pertains, or as otherwise permitted by law. A general authorization for the release of medical or other information is NOT sufficient for this purpose. ? For additional information please refer to http://education.[employer]/faq/BCK040 (This link is being provided for informational/ educational purposes only.) ? The performance of this assay has not been clinically validated in patients less than 2 years old. ?? 02/06/2022 8:46 AM EDT us Melida Quarles MD LAB BLOOD ORDERABLES Final Re sult [facility] [address] from Last 3 Months or Most Recently Relevant to Health Maintenance Insurance [employer] Care Teams [employer] Senior Specialist Relationship Specialty Start Date End Date Melida Quarles MD [address] [place] [address] PCP - General Family Medicine 10/12/21
== END 2024-06-21 13:23 | disposition home or self-care (01) ==
PROVIDERS: PCP Family Medicine; Visit Provider Surgery
DX: D17.1 Benign lipomatous neoplasm of skin and subcutaneous tissue of trunk (principal)
CPT/HCPCS: 99204

== ENCOUNTER → 2024-06-21 13:07 | Outpatient (BNVA) | payer MEDICAID, SELFPAY | PROVIDERS: PCP Family Medicine; Visit Provider Surgery | DX: D17.1 Benign lipomatous neoplasm of skin and subcutaneous tissue of trunk (principal) | CPT/HCPCS: 99202 ==

== ENCOUNTER 2024-07-16 07:33 | Day surgery (SDC) | payer MEDICAID, SELFPAY ==
[2024-07-14 12:12] VITALS: BMI 29.1
--- NOTE | 2024-07-15 09:33 | HO.ANESPROP2 ---
Documented by User: Mattie Camilo NP 07/15/24 09:33 HPI - Anesthesia Eval Consult details Narrative: 23yo F for Wide Local Excision Lipoma X2, LEFT upper back and Right lower back PMFSH Active Problems Active Problems: All Active Problems Lipoma of back (Acute) Past Medical History Medical History Amenorrhea Surgical History Surgical History Hx of breast reduction, elective (06/19/23) Social History Social History Are you a primary behavioral health care manager to a significant other at home: No Do you presently have visiting nurse or other home services: No Alcohol intake: never Patient Tobacco Use Status: Never used Tobacco Second Hand Smoke Exposure: No Use of substances other than those prescribed or required for medical reasons: Yes Substance Use Type: Marijuana Substance Use Frequency: Weekly Have you been hit, kicked, punched, or otherwise hurt by someone within the past year? If so, by whom?: No Are you DNR?: No Advance Directives: No Advance Directives Information Provided: Yes Recently lost weight without trying: No Nutrition Risks: No Nutritional Risk Patient : No FDLMP: 07/02/24 Current occupational status: unemployed Sexual orientation: Straight/Heterosexual Gender identity: Female Meds Allergies Allergy/AdvReac Type Severity Reaction Status Date / Time No Known Allergies Allergy Verified 07/16/24 08:17 [No Known Allergies*] Home Medications ?Medication ?Instructions ?Recorded ?Confirmed ?Last Taken ?Type drospirenone 3 mg-ethinyl 1 tab PO DAILY 12/07/21 06/21/24 Unknown History estradiol 0.03 mg tablet (Sol) levonorgestrel 1.5 mg tablet 1.5 mg PO DAILY PRN 12/07/21 06/21/24 Unknown History (Aftera) Exam Height,Weight and Vital Signs: Height 5 ft 1 in Weight 69.853 kg Assessment and Plan Assessment Anesthesia Assessment: Chart Reviewed Documented by User: Paty Shaffer MD 07/16/24 09:53 PMFSH Past Medical History Medical History Amenorrhea Surgical History Surgical History Hx of breast reduction, elective (06/19/23) History of Problems with Anesthesia: No Social History Social History Are you a primary behavioral health care manager to a significant other at home: No Do you presently have visiting nurse or other home services: No Alcohol intake: never Patient Tobacco Use Status: Never used Tobacco Second Hand Smoke Exposure: No Use of substances other than those prescribed or required for medical reasons: Yes Substance Use Type: Marijuana Substance Use Frequency: Weekly Have you been hit, kicked, punched, or otherwise hurt by someone within the past year? If so, by whom?: No Are you DNR?: No Advance Directives: No Advance Directives Information Provided: Yes Recently lost weight without trying: No Nutrition Risks: No Nutritional Risk Patient : No FDLMP: 07/02/24 Current occupational status: unemployed Sexual orientation: Straight/Heterosexual Gender identity: Female Meds Allergies Allergy/AdvReac Type Severity Reaction Status Date / Time No Known Allergies Allergy Verified 07/16/24 08:17 [No Known Allergies*] Home Medications ?Medication ?Instructions ?Recorded ?Confirmed ?Last Taken ?Type drospirenone 3 mg-ethinyl 1 tab PO DAILY 12/07/21 06/21/24 Unknown History estradiol 0.03 mg tablet (Sol) levonorgestrel 1.5 mg tablet 1.5 mg PO DAILY PRN 12/07/21 06/21/24 Unknown History (Aftera) Exam Airway Mallampati Class: II TM Dist: >3cm Neck ROM: Full Loose/Missing/Broken Teeth: No Heart: RRR Lungs: CTA Assessment and Plan Assessment Anesthesia Assessment: Anesthesia Plan Discussed Final Anesthetic Review History of Problems with Anesthesia: No NPO: Yes ASA Class: I Final Preanesthetic Review: Meds/Allgs Chart Reviewed, Consent Obtained/Reviewed and Anes Risks/Benef Reviewed Patient Risk: Low Procedure Risk: Low Anesthetic Plan Anesthetic Plan: GA Disposition: Standard PACU
--- NOTE | 2024-07-15 12:51 | MHC.SHP ---
Pre-Procedural Eval Section A - 24 Hr Update-Section A only Date of Service: 07/16/24 The patient is an INPATIENT: No Changes since office visit: No Cold of Flu in the past 2 weeks, No New Medical Problems, No Changes in Medication and No Patient answered all questions Section B - Complete if H&P > 30 days Chief Complaint: Benign lipomatous neoplasm of skin and subcutaneou Allergies: Allergies Allergy/AdvReac Type Severity Reaction Status Date / Time No Known Allergies Allergy Verified 06/21/24 13:14 [No Known Allergies*] Review of Systems Sugical H&P ROS: Negative: Constitution, Cardiovascular, Respiratory, Neurological, Psychiatric, Hem-Onc, Allergic/Immunologic, Gastrointestinal, Genitourinary, Musculoskeletal, Integumentary, Endocrine and Eyes/Ears/Nose/Throat Exam Surgical H&P Exam: Normal: HEENT, Normal: Heart, Normal: Lungs, Normal: Extremities, Normal: Abdomen, Normal: Skin and Normal: Neurological Plan I have reviewed the history and physical and performed a pertinent physical examination on my patient. No changes have occurred unless specified. Time Spent With Patient Time: Total time managing care of this patient today ____ minutes.
[2024-07-16 08:12] LABS: UPreg QC Valid YES; Urine Pregnancy NEGATIVE (NEGATIVE)
[2024-07-16 08:17] VITALS: BP 100/72; PULSE 93; RESP 14; TEMP 36.4; O2SAT 97
[2024-07-16] MEDS: Lactated Ringers 1,000 ML 100 ML IVCONT (08:22)
--- NOTE | 2024-07-16 10:45 | W.PM.OPN ---
Operative Note Operative Note Date of Service: 07/16/24 Narrative: Preoperative diagnosis: [] Symptomatic enlarging 1. Left upper back large lipoma 2. Right lower back large lipoma Postop diagnosis: [] The same Procedure [] wide local excision upper and lower back lipomas. Surgeon: [] Fidel Nurse Outreach Case Manager: [] Josephine Type of Anesthesia: [] Generally Indication for surgery: [] Left upper back lipoma measured 9 x 6 cm. Right lower back measured 5 x 7 cm Findings: [] Patient brought to the operating room, placed on operative table supine position, after an adequate level of general anesthesia was induced, patient was placed in the right lateral decubitus position. Entire back area involving left upper and right lower were prepped and draped in usual sterile fashion. Each lipoma was approached using a transverse incision which was carried down through skin, subcutaneous tissue, and uneventfully dissection and excision of these 2 large lipomas, with dimensions as described above , was uneventfully performed. Each specimen separately sent to pathology. Each wound was irrigated, secured hemostasis, and closed using interrupted inverted dermal 3-0 Vicryl sutures followed by Steri-Strips and sterile dressings. Each wound was infiltrated at the beginning and at the end with 0.5% Marcaine/1% lidocaine. Sponge, needle, and instrument counts reported correct. Patient tolerated the procedure well and emerged from anesthesia stable condition. EBL minimal
[2024-07-16 10:53] VITALS: BP 97/61; PULSE 111; RESP 18; TEMP 36.3; O2SAT 100
[2024-07-16 10:55] VITALS: BP 100/60; PULSE 96; RESP 18; O2SAT 100
[2024-07-16 11:00] VITALS: BP 97/68; PULSE 88; RESP 18; O2SAT 98
[2024-07-16 11:05] VITALS: BP 99/70; PULSE 83; RESP 16; TEMP 36.1; O2SAT 99
== END 2024-07-16 11:32 | disposition home or self-care (01) ==
PROVIDERS: Nurse Practitioner; PCP Family Medicine; Visit Provider Surgery
PROC: (CPT 21931; principal; 2024-07-16 09:50)
DX: D17.1 Benign lipomatous neoplasm of skin and subcutaneous tissue of trunk (principal); Z98.890 Other specified postprocedural states
CPT/HCPCS: 21931 ×2; 81025; 88304; J0690; J1100; J1885; J2003; J2250; J2405; J2704; J2795; J3010

== ENCOUNTER → 2024-07-16 07:33 | Outpatient (BNV) | payer MEDICAID, SELFPAY | PROVIDERS: PCP Family Medicine; Visit Provider Surgery | DX: D17.1 Benign lipomatous neoplasm of skin and subcutaneous tissue of trunk (principal) | CPT/HCPCS: 21931 ==

== ENCOUNTER 2024-07-26 12:04 | Outpatient (AMB) | payer MEDICAID, SELFPAY ==
--- NOTE | 2024-07-26 12:02 | MHC.OFFVIS ---
Intake Visit Reasons: s/p surgery Intake Note: Patient here s/p wide local excision upper and lower back lipomas. Reports incisions healing well. Patient c/o: no concerns. No longer taking rx pain meds. 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 She has no wound issues or complaints. Pathology is benign. PFSH Medical History Amenorrhea Surgical History (Updated 07/26/24 @ 12:19 by Zachary Parra MD) Hx of surgical procedure (07/16/24) Hx of breast reduction, elective (06/19/23) Social History Are you a primary emergency care tech to a significant other at home: No Do you presently have visiting nurse or other home services: No Alcohol intake: never Patient Tobacco Use Status: Never used Tobacco Second Hand Smoke Exposure: No Substance Use Type: Marijuana Current occupational status: unemployed Sexual orientation: Straight/Heterosexual Gender identity: Female Physical Exam Back/Spine/Pelvis Other: Both incisions clean dry and intact healing very well Assessment & Plan Assessment & Plan (1) Encounter for postoperative wound check: Code(s): Z48.89 - Encounter for other specified surgical aftercare Category: Surgical Plan Patient was been given local instructions including avoiding strenuous activities next few weeks time and will otherwise follow-up p.r.n.. All questions answered Coding Level of Care Code Global (44305) Diagnoses Encounter for postoperative wound check Z48.89
--- OUTSIDE RECORDS SUMMARY | 2024-07-26 13:43 | XMS_ITS | Encounter Summary ---
Author Organization [employer] Address [address] [facility] 7 [place] [address] Care Team Providers Care Power Mule Operator Name Role Phone Melida Quarles MD Primary Care Provider [phone] Encounter Details Date Type Department Care Team ([facility] st Contact Info) Description 07/21/2024 9:45 AM EST Office Visit [facility] MED [facility] PEDS [address] [place], [place] [phone] Rehana Barker MD [address] [place] [address] Overweight (Primary Dx); Dietary counseling; Exercise counseling Social History Tobacco Use Types Packs/Day Years [...] Orientation Straight 11/08/2022 4: 18 PM EDT documented as of this encounter Last Filed Vital Signs Vital Sign Reading Time Taken Comments Blood Pressure 120/70 07/21/2024 10:10 AM EST Pulse 100 07/21/2024 9:53 AM EST Temperature 36.6 ??C (97.9 ??F) 07/21/2024 9:53 AM ES T Respiratory Rate 16 07/21/2024 9:53 AM EST Oxygen Saturation 99% 07/21/2024 9:53 AM EST Inhaled Oxygen Concentration - - Weight 71.2 kg (157 lb) 07/21/2024 9:53 AM EST Height 155.6 cm (5' 1.25 ) 07/21/2024 9:53 AM ES T Body Mass Index 29.42 07/21/2024 9:53 AM EST documented in this encounter Progress Notes * Rehana Barker MD - 07/21/2024 9:45 AM EST Subjective Patient ID: Lynette Mcguire is a 23 y.o. female who presents for inability to lose weight. Lynette is a healthy 23-year-old female patient of Dr. Quarles here complaining of having a very hardtime losing weight despite trying for over a year through different types of diets including vegetarian, high-protein diet, use of a dietitian, Cross[employer] gym, etc... Patient is getting frustrated and wants to know if she qualifies for Zepbound injections. Patient states has always been thin all her life until recently. Does not take any medications. She did gain weight while taking control pills which she has stopped taking. She is not currently sexually active. She had blood work done in 2023 including thyroid function test, glucose and liver test which were all normal. Review of Systems Constitutional: Negative for activity change, chills, fever and unexpected weight change. Respiratory: Negative for cough, shortness of breath and wheezing. Cardiovascular: Negative for chest pain, palpitations and leg swelling. Gastrointestinal: Negative for abdominal pain and blood in stool. Endocrine: Negative for polydipsia and polyuria. Genitourinary: Negative for decreased urine volume, difficulty urinating, dysuria and hematuria. Musculoskeletal: Negative for arthralgias and gait problem. Skin: Negative for color change and rash. Neurological: Negative for dizziness and headaches. Hematological: Negative for adenopathy. Psychiatric/Behavioral: Negative for dysphoric mood, hallucinations, sleep disturbance and suicidalideas. The patient is not nervous/anxious. Objective BP 120/70 Pulse 100 Temp 97.9 ??F (36.6 ??C) (Oral) Resp 16 Ht 5' 1.25 (1.556 m) Wt 157 lb (71.2 kg) SpO2 99% BMI 29.42 kg/m?? Physical Exam Vitals reviewed. Constitutional: General: She is not in acute distress. Appearance: Normal appearance. She is not ill-appearing. HENT: Head: Normocephalic. Right Ear: Tympanic membrane and ear canal normal. Left Ear: Tympanic membrane and ear canal normal. Nose: Nose normal. Mouth/Throat: Mouth: Mucous membranes are moist. Pharynx: No oropharyngeal exudate or posterior oropharyngeal erythema. Eyes: Extraocular Movements: Extraocular movements intact. Conjunctiva/sclera: Conjunctivae normal. Pupils: Pupils are equal, round, and reactive to light. Cardiovascular: Rate and Rhythm: Normal rate and regular rhythm. Pulses: Normal pulses. Heart sounds: Normal heart sounds. Pulmonary: Effort: Pulmonary effort is normal. No respiratory distress. Breath sounds: Normal breath sounds. Abdominal: Palpations: Abdomen is soft. Musculoskeletal: General: Normal range of motion. Cervical back: Normal range of motion. Skin: General: Skin is warm. Capillary Refill: Capillary refill takes less than 2 seconds. Neurological: General: No focal deficit present. Mental Status: She is alert and oriented to person, place, and time. Psychiatric: Mood and Affect: Mood normal. Behavior: Behavior normal. Thought Content: Thought content normal. Judgment: Judgment normal. Assessment/Plan Diagnoses and all orders for this visit: Overweight Dietary Recommendations: Fruits, vegetables, whole grains, protein foods, and fat-free or low-fat dairy products are healthychoices. Eat different types of protein foods in your diet. This can include seafood, lean meats, poultry, beans, peas, lentils, nuts, seeds, soy products, and eggs. Limit foods and beverages higher in added sugars, saturated fat, and sodium. Exercise Recommendations: At least 150 minutes of moderate-intensity physical activity per week, or an equivalent combinationof moderate- and vigorous-intensity activity Comments: Trial of 8 mg phentermine +50 mg Topamax started today. Return to clinic via televisit in 4 weeks with me for reevaluation. Patient agrees. Possible side effect discussed including increasing anxietylevel. Patient understood and will let me know if this happens. Dietary counseling Exercise counseling Other orders - EPINEPHrine (EpiPen 2-Garett) 0.3 MG/0.3ML injection syringe; Inject 0.3 mL (0.3 mg) as directed 1 (one) time for 1 dose. - topiramate (Topamax) 50 MG tablet; Take 1 tablet (50 mg) by mouth Once per day. - phentermine 8 MG tablet; Take 1 tablet (8 mg) by mouth Once per day. documented in this encounter Plan of Treatment Upcoming Encounters Date Type Department Care Team (Late st Contact Info) Description 08/25/2024 9:00 AM EDT Telemedicine [facility] MED & PEDS [address] [place] [address] Rehana Barker MD [address] [place] [address] documented as of this encounter Visit Diagnoses Diagnosis Overweight- Primary Dietary counseling Dietary surveillance and counseling Exercise counseling documented in this encounter Additional Health Concerns Assessment Noted Time PHQ-9 Depression Total Score: 2 11/09/19 23 11:13 AM EDT documented as of this encounter Care Teams Power Mule Operator Relationship Specialty Start Date End Date Melida Quarles MD [address] [place] [id number] PCP - General Family Medicine 10/12/21 documented as of this encounter
--- OUTSIDE RECORDS SUMMARY | 2024-07-26 13:43 | XMS_ITS | Encounter Summary ---
Author Organization [email or web address] Address [address] [facility] [address] [place] [address] Care Team Providers Care Probation And Parole Officer Name Role Phone Melida Quarles MD Primary Care Provider [phone] Encounter Details Date Type Department Care Team (Latest Contact Info) Description 07/21/2024 Travel Social History Tobacco Use Types Packs/Day Years [...] PM EDT documented as of this encounter Plan of Treatment Upcoming Encounters Date Type Department Care Team ([facility] st Contact Info) Description 08/25/2024 9:00 AM EDT Telemedicine [facility] MED & PEDS [address] [place] [address] Rehana Barker MD [address] [place] [address] documented as of this encounter Visit Diagnoses Not on filedocumented in this encounter Additional Health Concerns Assessment Noted Time PHQ-9 Depression Total Score: 2 11/09/19 11:13 AM EDT documented as of this encounter Care Teams Probation And Parole Officer Relationship Specialty Start Date End Date Melida Quarles MD [address] [place] [phone] PCP - General Family Medicine 10/12/21 documented as of this encounter
--- OUTSIDE RECORDS SUMMARY | 2024-07-26 13:43 | XMS_ITS | Clinical Summary ---
Author Organization [employer] Address [address] [facility] 7t [place] [address] Care Team Providers Care Crystal Grower Name Role Phone Melida Quarles MD Primary Care Provider [phone] Allergies Active Allergy Reactions Criticality Noted Date Comments Bee Pollen Anaphylaxis High 05/22/2020 Yellow Jacket Venom 12/14/2021 Allergic to bees Medications ibuprofen 800 MG tablet TAKE 1 TABLET (800 MG) BY MOUTH EVERY 8 HOURS NEEDED FOR PAIN (MILD/MODERAT E) FOR UP TO 10 DAYS 10/22/19 23 Active tranexamic acid (Lysteda) 650 MG tablet tablet TAKE 2 TABLETS BY MOUTH 3 TIMES A DAY FOR 5 DAYS 01/24/20 24 Active EPINEPHrine (EpiPen 2-Garett) 0.3 MG/0.3ML injection syringe Inject 0.3 mL (0.3 mg) as directed 1 (one) time for 1 dose. 1 each 1 07/22/19 25 Active topiramate (Topamax) 50 MG tablet Take 1 tablet (50 mg) by mouth Once per day. 30 tablet 3 07/22/19 25 Active phentermine 8 MG tablet Take 1 tablet (8 mg) by mouth Once per day. 30 tablet 07/22/19 25 Active clotrimazole (Lotrimin) 1 % cream Apply topically every 12 (twelve) hours. 02/28/20 22 025 Discontinued(Th erapy completed) EPINEPHrine (EpiPen 2-Garett) 0.3 MG/0.3ML injection syringe Inject 0.3 mL into the shoulder, thigh, or buttocks. 05/28/19 22 025 Discontinued(Re order (will not trigger notification to Pharmacy)) terbinafine (LamISIL AT) 1 % cream Apply topically 2 times daily. 42 g 11/21/19 025 Discontinued(Th erapy completed) prochlorperazi ne (Compazine) 5 MG tablet TAKE 1 TABLET (5 MG TOTAL) BY MOUTH EVERY 6 (SIX) HOURS IF NEEDED FOR NAUSEA OR VOMITING. 10/22/19 025 Discontinued(Th erapy completed) EPINEPHrine (EpiPen 2-Garett) 0.3 MG/0.3ML injection syringe Inject 0.3 mL (0.3 mg) as directed 1 (one) time for 1 dose. 1 each 1 07/22/19 025 Discontinued(Re order (will not trigger notification to Pharmacy)) Active Problems Problem Noted Date Diagnosed Date [...] needs new referral to surgery, [place] [facility] [place]weight 04/14/2024 Assessment & Plan (04/14/2024 9:43 AM EST): Discussed calorie deficit, recommended reduction of 20-30% of maintenance calories; director of collections and archives referral offered. 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 Recommended to decrease soda and sugary beverage consumption. Recommended at least 20 g per meal of protein to assist with satiety. Recommended at least 150 min/week of moderate intensity exercise. Encounters Date Type Department Care Team Description 07/21/2024 9:45 AM EST Office Visit [facility] MED & PEDS [address] [place], [place] [phone] Rehana Barker MD Overweight (Primary Dx); Dietary counseling; Exercise counseling 07/21/2024 Travel 07/20/2024 1:45 PM EST Office Visit [facility] OPTOMETRY [address] [place], [place] [phone] Holly Walls OD Regular astigmatism, bilateral (Primary Dx) 07/20/2024 Travel 07/20/2024 Telephone [facility] MEDICINE [address] [place] [address] Melida Quarles MD Nurse Triage 07/16/2024 Telephone [facility] [address] [place], [place] [phone] Melida Quarles MD Appointment Request 05/04/2024 Telephone [facility] [address] [place], [place] [phone] Melida Quarles MD 05/04/2024 Telephone [facility] [address] [place], [place] [phone] Melida Quarles MD from Last 3 Months Immunizations Name Administration [...] Mass Index 29.42 07/21/2024 9:53 AM EST Plan of Treatment Upcoming Encounters Date Type Department Care Team ([facility] st Contact Info) Description 08/25/2024 9:00 AM EDT Telemedicine [facility] MED & PEDS [address] [place] [address] Rehana Barker MD [address] [place] [address] Health Maintenance Due Date Last Done Comments HPV Vaccines (1 - 3-dose series) 2016 Hepatitis C Screening 08/02/2019 Depression Screening 11/09/2023 11/08/2022, 11/09/19 SDOH Screening 11/09/2023 11/08/2022 COVID-19 Vaccine ( season) 2024 03/27/2022, 06/06/2021, 05/15/2021 Chlamydia and Gonorrhea Screening 01/21/2025 01/22/2024, 11/27/2021 Family Planning (PISQ) 02/02/2025 02/03/2024 Alcohol/Substance Use Screening 04/14/2025 04/14/2024 Tobacco Screening 07/21/2025 07/21/2024 Pap Smear 04/24/2026 04/24/2023 DTaP/Tdap/Td Vaccines (8 [...] Procedure Name Priority Date/Time Associated Diagnosis Comments GROSS AND MICROSCOPIC LEVEL 3 Routine 07/16/2024 10:24 AM EST Bacterial vaginosis HCG, QL, URINE Routine 07/16/2024 7:45 AM EST Bacterial vaginosis CHLAMYDIA/N. GONORRHOEAE RNA, TMA, UROGENITAL Routine 01/22/2024 4:28 PM EDT Intermenstrual bleeding PAP SMEAR Routine 04/24/2023 2:54 PM EST Cervical cancer screening HIV 1/2 ANTIGEN/ANTIBODY, FOURTH GENERATION W/RFL Routine 02/06/2022 8:46 AM EDT from Last 3 Months or Most Recently Relevant to Health Maintenance Results * Gross and Microscopic Level 3 (07/16/2024 10:24 AM EST) 07/16/2024 10:2 4 AM EST 07/16/2024 11:16 AM EST [facility] - 07/19/2024 12:23 PM EST ----- ------- Name: Lynette Mcguire ?Age/Sex: 23/F ? : 2000 Unit#: [id number] ?? Attend Dr: Zachary Parra MD ?Re07/16/24 ?Status: DEP SDC ? Location: HO.SSS ?Disch: ? ----- ------- SPEC : [id number] ? RECD: 07/16/24-1116 ? STATUS: ??SOUT ? REQ NUM: [id number] ? MONTRELL: 07/16/24-1024 ? SUBM DR: Zcahary Parra MD ? ENTERED: ??07/16/24-113 ?SP TYPE: Surgical ? OTHR DR: Melida Quarles MD ? ORDERED: ??Gross Micro L3/2 ? Diagnosis ?? A. ??Soft tissue, left upper back, excision: ??Mature lobulated adipose tissue consistent ?? with lipoma. ? B. ??Soft tissue, right lower back, excision: ??Mature lobulated adipose tissue consistent ?? with lipoma. ?Clinical History Lipomatosis back x2 ?Microscopic Description Microscopic sections reviewed. ? Material Received ?? A. Lipoma left upper back ?? B. Lipoma right lower back ? Gross Description Received in 2 parts. A. ??Received in formalin labeled ?lipoma left upper back? are fragments of lobulated yellow adipose tissue forming an aggregate measuring 7.0 x 6.5 x 2.5 cm. ??Sectioning reveals a smooth, moist homogeneous yellow-white cut surface with no gross evidence of fat necrosis seen service center representative sections are submitted for microscopic examination in cassettes A1 through A3, 1 piece each. B. ??Received in formalin labeled ?lipoma right lower back? is an oval mass of yellow adipose tissue measuring 6.0 x 5.1 x 2.5 cm. ??The specimen is partially encapsulated by paper thin transparent membrane. ??Just take the name in take 2 in the sucking useless the outer surface is inked black. ??Sectioning reveals a smooth, moist homogeneous yellow-white cut surface with no gross evidence of fat necrosis seen service center representative sections are submitted for microscopic examination in cassettes B1 through B3, 1 piece each. ??([facility]) Copies To: ?? Zachary Parra MD ?? [facility] ?? [address] ?? [place] [address] ?? [phone] ? CONTINUED ON NEXT PAGE ----- ------- Name: Lynette Mcguire ?Age/Sex: 23/F ? : 2000 Unit#: [id number] ?? Attend Dr: Zachary Parra MD ?Re07/16/24 ?Status: DEP SDC ? Location: HO.SSS ?Disch: ? ----- ------- SPEC : [id number] ? RECD: 07/16/24-1116 ? STATUS: ??SOUT ? REQ NUM: [id number] ? MONTRELL: 07/16/24-1024 ? SUBM DR: Zachary Parra MD ? ENTERED: ??07/16/24-1131 ?SP TYPE: Surgical ? OTHR DR: Melida Quarles MD ? ORDERED: ??Gross Micro L3/2 ? Copies To: ??(Continued) ?? [email or web address] ?? Melida Quarles MD ?? [address] ?? [place] [address] ?? [phone] ----- ------- Signed (signature on file) Coty Ramírez MD 07/19/24 1223 ? ----- ------- ? END OF REPORT ? Generic External Data Provider LAB CYTOLOGY KARIN SMYTH Final Result [facility] [address] [place] [address] [phone] * HCG, Qualitative, Urine (07/16/2024 7:45 AM EST) Pathologist [facility] Urine NEGATIVE NEGATIVE [facility] Comment:This test was develo ped to detect early . Falsenegative results may occur after the 5th - 7th week ofpregnancy when using this test method. If clinicallyindicated, consider a serum hCG. 07/16/2024 7:45 AM EST 07/16/2024 8:05 AM EST us Generic External Data Provider LAB URINE ORDERAB LES Final Result [facility] [address] [place] [address] [phone] * Chlamydia/N. Gonorrhoeae RNA, TMA, Urogenitial (01/22/2024 4:28 PM EDT) CT PCR NOT DETECTED Not Detect. [facility] Comment:A not detected test result does [...] psychologicalconsequences. NG PCR NOT DETECTED Not Detect. [facility] Comment:A not detected test result does [...] 4:28 PM EDT 01/22/2024 5:37 PM EDT Narrative [facility] - 01/23/2024 2:45 AM EDT Vaginal us Natacha Hall MD LAB MICROBIOLOGY - GENERAL OR DERABLES Final Result [facility] [address] [place] [address] [phone] * Pap Smear (04/24/2023 2:54 PM EST) Swab Cervical swab / Unknown 04/24/2023 2:54 PM EST 04/28/2023 8:50 AM EST [facility] - 04/30/2023 10:30 AM EST ----- ------- Name: Lynette Mcguire ?Age/Sex: 22/F ? : 2000 Unit#: [id number] ?? Attend Dr: ?Re04/24/23 ?Status: PRE REF ? Location: HO.LNP ?Disch: ? ----- ------- SPEC : [id number] ?RECD: 04/28/23 ? STATUS: ??SOUT ? REQ NUM: [id number] ? MONTRELL: 04/24/23 ? SUBM DR: Melida [...] ------- Signed (signature on file) BJ Hunt (ASCP) 04/30/23 1030 ? ----- ------- ? END OF REPORT ? us Melida Quarles MD LAB CYTOLOGY ORDERABLES Final Result [facility] [address] [place] [phone] * HIV 1/2 ANTIGEN/ANTIBODY,FOURTH GENERATION W/RFL (02/06/2022 8:46 AM EDT) [facility] HIV-1/2 ANTIGEN AND ANTIBODIES, 4TH GENERATION W/ REFLEX NON-REACT CHRISTIE NON-REACT CHRISTIE [facility] Comment: HIV-1 antigen and HIV-1/HIV-2 [...] ? For additional information please refer to http://education.[employer]/faq/CPW954 (This link is being provided for informational/ educational purposes only.) ? The performance of this assay has not been clinically validated in patients less than 2 years old. ?? 02/06/2022 8:46 AM EDT us Melida Quarles MD LAB BLOOD ORDERABLES Final Re sult [facility] [address] from Last 3 Months or Most Recently Relevant to Health Maintenance Insurance Care Teams Crystal Grower Relationship Specialty Start Date End Date Melida Quarles MD [address] [place] [address] PCP - General Family Medicine 10/12/21
--- OUTSIDE RECORDS SUMMARY | 2024-07-26 13:43 | XMS_ITS | Encounter Summary ---
Author Organization [employer] Address [address] [facility] [address] [place] [address] Care Team Providers Care Inspector Crystal Name Role Phone Melida Quarles MD Primary Care Provider [phone] Encounter Details Date Type Department Care Team (Latest Contact Info) Description 07/20/2024 Travel Social History Tobacco Use Types Packs/Day [...] Upcoming Encounters Date Type Department Care Team ([facility] st Contact Info) Description 08/25/2024 9:00 AM EDT Telemedicine [facility] MED & PEDS [address] [place] [address] Rehana Barker MD [address] [place] [address] documented as of this encounter Visit Diagnoses Not on filedocumented in this encounter Additional Health Concerns Assessment Noted Time PHQ-9 Depression Total Score: 2 11/09/19 11:13 AM EDT documented as of this encounter Care Teams Inspector Crystal Relationship Specialty Start Date End Date Melida Quarles MD [address] [place] [id number] PCP - General Family Medicine 10/12/21 documented as of this encounter
--- OUTSIDE RECORDS SUMMARY | 2024-07-26 13:44 | XMS_ITS | Encounter Summary ---
Author Organization [employer] Address [address] [address] [facility] [address] [place] [address] Care Team Providers Care Office Automation Clerk Name Role Phone Melida Quarles MD Primary Care Provider [phone] Encounter Details Date Type Department Care Team ([facility] st Contact Info) Description 07/20/2024 1:45 PM EST Office Visit [facility] OPTOMETRY [address] [place], [place] [id number] TarkaHolly, OD [address] [place] [address] Regular astigmatism, bilateral (Primary Dx) Social History Tobacco Use Types Packs/Day Years [...] PM EDT documented as of this encounter Progress Notes * Holly Walls, OD - 07/20/2024 1:45 PM EST Eye Care Progress Note Patient ID: Lynette Mcguire is a 23 y.o. female. HPI Patient reports blurry vision right eye (OD)>left eye (OS) especially noticeable when night driving. [place]: 2021 here Last edited by Holly Walls, OD on 07/20/2024 3:11 PM. Current Outpatient Medications Medication Sig Dispense Refill clotrimazole (Lotrimin) 1 % cream Apply topically every 12 (twelve) hours. EPINEPHrine (EpiPen 2-Garett) 0.3 MG/0.3ML injection syringe Inject 0.3 mL into the shoulder, thigh, or buttocks. ibuprofen 800 MG tablet TAKE 1 TABLET (800 MG) BY MOUTH EVERY 8 HOURS NEEDED FOR PAIN (MILD/MODERATE) FOR UP TO 10 DAYS prochlorperazine (Compazine) 5 MG tablet TAKE 1 TABLET (5 MG TOTAL) BY MOUTH EVERY 6 (SIX) HOURS IFNEEDED FOR NAUSEA OR VOMITING. terbinafine (LamISIL AT) 1 % cream Apply topically 2 times daily. 42 g 0 tranexamic acid (Lysteda) 650 MG tablet tablet TAKE 2 TABLETS BY MOUTH 3 TIMES A DAY FOR 5 DAYS No current facility-administered medications for this visit. History reviewed. No pertinent past medical history. History reviewed. No pertinent surgical history. No family history on file. Tobacco Use: Low Risk (07/20/2024) Tobacco Smoking Tobacco Use: Never Smokeless Tobacco Use: Never Passive Exposure: Never Allergies Allergen Reactions Bee Pollen Anaphylaxis Yellow Jacket Venom Allergic to bees ROS Positive for: Eyes Negative for: Constitutional, Gastrointestinal, Neurological, Skin, Genitourinary, Musculoskeletal,HENT, Endocrine, Cardiovascular, Respiratory, Psychiatric, Allergic/Imm, Heme/Lymph Last edited by Holly Walls, JD on 07/20/2024 3:10 PM. Base Eye Exam Visual Acuity (Snellen - Linear) Right Left Dist sc 20/20 20/20 Tonometry (iCare , 2:21 PM) Right Left Pressure 21 21 Pupils Pupils APD Right PERRL None Left PERRL None Visual Grande (Counting fingers) Left Right Full Full Extraocular Movement Right Left Full Full Neuro/Psych Oriented x3: Yes Mood/Affect: Normal Dilation Both eyes: 1.0% tropicamide @ 2:18 PM Slit Lamp and Fundus Exam External Exam Right Left External Normal Normal Slit Lamp Exam Right Left Lids/Lashes Clean and clear Clean and clear Conjunctiva/Sclera White and quiet White and quiet Cornea Clear Clear Anterior Chamber Deep and quiet, angles open gr 4 Deep and quiet, angles open gr 4 Iris Flat, round Flat, round Lens Clear Clear Fundus Exam Right Left Vitreous Clear Clear Disc Leoti and healthy Leoti and healthy C/D Ratio Vertical 0.15 0.15 C/D Ratio Horizontal 0.15 0.15 Macula Flat, even pigmentation Flat, even pigmentation Vessels AV 2/3, normal course and caliber AV 2/3, normal course and caliber Periphery No holes/tears/detachments 360 No holes/tears/detachments 360 Refraction Wearing Rx Sphere Cylinder [place] Right 0.5 -0.75 130 Left 0.5 -0.25 65 Previous Rx - did not bring Manifest Refraction (Auto) Sphere Cylinder [place] Dist VA Right +0.00 -0.25 157 Left -0.75 -0.25 006 Manifest Refraction #2 (Subjective) Sphere Cylinder [place] Dist VA Right +0.50 -0.75 130 20/20 Left +0.00 -0.25 065 20/20 Final Rx Sphere Cylinder [place] Right +0.50 -0.75 150 Left +0.25 -0.50 045 Expiration Date: 07/20/2026 Assessment and Plan Diagnoses and all orders for this visit: Regular astigmatism, bilateral - Dispensed updated spec Rx - Ocular health WNL OU RTC in 2 years for comprehensive eye exam or sooner as needed Holly Walls OD 07/20/2024, 3:12 PM documented in this encounter Plan of Treatment Upcoming Encounters Date Type Department Care Team (Late st Contact Info) Description 08/25/2024 9:00 AM EDT Telemedicine [facility] MED & PEDS [address] [place], [place] [phone] Rehana Barker MD [address] [place] [address] documented as of this encounter Visit Diagnoses Diagnosis Regular astigmatism, bilateral- Primary documented in this encounter Additional Health Concerns Assessment Noted Time PHQ-9 Depression Total Score: 2 11/09/19 23 11:13 AM EDT documented as of this encounter Care Teams Office Automation Clerk Relationship Specialty Start Date End Date Melida Quarles MD [address] [place] [id number] PCP - General Family Medicine 10/12/21 documented as of this encounter
--- OUTSIDE RECORDS SUMMARY | 2024-07-26 13:44 | XMS_ITS | Encounter Summary ---
Author Organization [employer] Address [address] [facility] [place] [address] Care Team Providers Care Shrimping Boat Captain Name Role Phone Melida Quarles MD Primary Care Provider [phone] Reason for Visit * Reason Onset Date Comments Appointment Request 07/16/2024 Encounter Details Date Type Department Care Team ([facility] st Contact Info) Description 07/16/2024 Telephone [facility] MEDICINE [address] [place] [address] Melida Quarles MD [address] [place] [address] Appointment Request Social History Tobacco Use Types Packs/Day Years Used Date Smoking Tobacco: Never Passive Smoke Exposure: Never Smokeless Tobacco: Never Alcohol Use Standard Drinks/Week Comments Not Currently 0 (1 standard drink = 0.6 oz pur e alcohol) Depression Answer Date Recorded Patient Health Questionnaire-9 Score 2 11/08/2022 Housing Stability Answer Date Recorded What is your housing situation today? I have lilykayla melvin 03/14/[address] you [...] PM EDT documented as of this encounter Miscellaneous Notes * Telephone Encounter - Dianne Melgar - 07/16/2024 3:37 PM EST Tc from pt requesting an appt f/u weight. documented in this encounter Plan of Treatment Upcoming Encounters Date Type Department Care Team (Late st Contact Info) Description 08/25/2024 9:00 AM EDT Telemedicine [facility] MED & PEDS [address] [place] [address] Rehana Barker MD [address] [place] [address] documented as of this encounter Visit Diagnoses Not on filedocumented in this encounter Additional Health Concerns Assessment Noted Time PHQ-9 Depression Total Score: 2 11/09/19 23 11:13 AM EDT documented as of this encounter Care Teams Shrimping Boat Captain Relationship Specialty Start Date End Date Melida Quarles MD [address] [place] [address] PCP - General Family Medicine 10/12/21 documented as of this encounter
--- OUTSIDE RECORDS SUMMARY | 2024-07-26 13:44 | XMS_ITS | Encounter Summary ---
Author Organization [employer] Address [address] [facility] [address] [facility] [address] [address] [place] [address] Care Team Providers Care Cash Management Specialist Name Role Phone Melida Quarles MD Primary Care Provider [phone] Reason for Visit * Reason Onset Date Comments Nurse Triage 07/20/2024 Encounter Details Date Type Department Care Team ([facility] st Contact Info) Description 07/20/2024 Telephone [facility] MEDICINE [address] [place] [address] Melida Quarles MD [address] [place] [address] Nurse Triage Social History Tobacco Use Types Packs/Day Years [...] encounter Miscellaneous Notes * Telephone Encounter - Caitlin Baron RN - 07/20/2024 9:21 AM EST Called pt. She states that she has been to the gripper installer and has been exercising and she keeps gaining weight. Pt. States went on Vegan diet and has even paid for cross fit classes with no relief. Ptstates she gained weight when started on control. Pt enquiring about the Zepbound injection. Thinks BMI makes her qualify and wants to discuss weight loss goals with provider. Appt given for 07/21/24 at 945am. In [facility]. Protocol Used: No Protocol Available (Adult) Protocol-Based Disposition: See in Office or Video Visit within 2 Weeks Video visit offer not recorded Positive Triage Question: * Nursing judgment * All higher-acuity triage questions were negative * Telephone Encounter - Nelson Jamison - 07/20/2024 9:20 AM EST Symptom: Weight Gain Outcome: Schedule an appointment to be seen within 3 days Reason: Caller denied all higher acuity questions The caller accepted this outcome. Contact pt at [phone] documented in this encounter Plan of Treatment Upcoming Encounters Date Type Department Care Team (Late st Contact Info) Description 08/25/2024 9:00 AM EDT Telemedicine [facility] MED & PEDS [address] [place] [address] Rehana Barker MD [address] [place] [address] documented as of this encounter Visit Diagnoses Not on filedocumented in this encounter Additional Health Concerns Assessment Noted Time PHQ-9 Depression Total Score: 2 11/09/19 23 11:13 AM EDT documented as of this encounter Care Teams Cash Management Specialist Relationship Specialty Start Date End Date Melida Quarles MD [address] [place] [phone] PCP - General Family Medicine 10/12/21 documented as of this encounter
== END 2024-07-26 12:36 | disposition home or self-care (01) ==
LOC: HO.HGS 12:04
PROVIDERS: PCP Family Medicine; Visit Provider Surgery
DX: Z48.89 Encounter for other specified surgical aftercare (principal)
CPT/HCPCS: 99024

== ENCOUNTER → 2024-07-26 12:04 | Outpatient (BNVA) | payer MEDICAID, SELFPAY | PROVIDERS: PCP Family Medicine; Visit Provider Surgery | DX: Z09 Encounter for follow-up examination after completed treatment for conditions other than malignant neoplasm (principal); Z87.2 Personal history of diseases of the skin and subcutaneous tissue; Z98.890 Other specified postprocedural states | CPT/HCPCS: 99212 ==

== ENCOUNTER 2025-02-14 14:31 | Outpatient (REF) | payer MEDICAID, SELFPAY ==
--- OUTSIDE RECORDS SUMMARY | 2025-02-14 10:15 | XMS_ITS | Encounter Summary ---
Author Organization [employer] Address [address] [facility] 7 [place] [address] Care Team Providers Care Storage Administrator Name Role Phone Melida Quarles MD Primary Care Provider [phone] Reason for Referral * Consultation (Routine) - Authorized Specialty Diagnoses / Procedures Referred By Contpromise t Referred To Contact Nutrition Diagnoses Class 1 obesity without serious comorbidity with body mass index (BMI) of 30.0 to 30.9 in adult, unspecified obesity type Melida Quarles MD [address] [place] [address] Phone: tel: fax: Referral ID Status Reason Start Date Expiration Date Visits Requested Visits Authorized [id number] Authorized Consult and Treat 02/14/2025 02/14/2026 1 1 Encounter Details Date Type Department Care Team ([facility] st Contact Info) Description 02/14/2025 10:15 AM EDT Office Visit [facility] MED & PEDS [address] [place] [address] Melida Quarles MD [address] [place] [address] Class 1 obesity without serious comorbidity with body mass index (BMI) of 30.0 to 30.9 in adult, unspecified obesity type (Primary Dx); Encounter for immunization; Encounter for health-related screening Social History Tobacco Use Types Packs/Day Years Used Date Smoking Tobacco: Never Passive Smoke Exposure: Never Smokeless Tobacco: Never Alcohol Use Standard Drinks/Week Comments Not Currently 0 (1 standard drink = 0.6 oz pur e alcohol) Depression Answer Date Recorded Patient Health Questionnaire-9 Score 2 10/18/2024 Patient Health Questionnaire-9 Score 2 10/18/2024 Last PHQ-9: Questionnaire Data Not on file 0 10/18/2024 Housing Stability Answer Date Recorded What is your housing situation today? I have lily melvin 09/13/[address] you li ve. Do you have problems with any of the following? None of the above 09/13/2024 Food Insecurity Answer Date Recorded Within the past 12 months, y ou worried that your food would run out before you got money to buy more: Never True 09/13/2024 Within the past 12 months,th e food you bought just didn't last and you didn't have enough money to get more: Never True Transportation Answer Date Recorded In the past 12 months, has l ack of transportation kept you from medical appts, meetings, work or from getting things needed for daily living? No 09/13/2024 Utilities Answer Date Recorded In the past 12 months, has t he electric, gas, oil or water company threatened to shut off services in your home? No 09/13/2024 Depression Answer Date Recorded Patient Health Questionnaire-2 Score 0 10/18/2024 Internet Access Answer Date Recorded Internet Access Q1 Yes 09/13/2024 Internet Access Q2 Not on file 09/13/2024 Comments No Sex and Gender Information Value Date Recorded Sex Assigned at Female 03/18/2022 10:17 AM EDT Legal Sex Female 10:17 AM EDT Gender Identity Female 11/08/2022 4:18 PM EDT Sexual Orientation Straight 11/08/2022 4: 18 PM EDT documented as of this encounter Last Filed Vital Signs Vital Sign Reading Time Taken Comments Blood Pressure 113/74 02/14/2025 10:30 AM EDT Pulse 80 02/14/2025 10:30 AM EDT Temperature 36.8 C (98.3 F) 02/14/2025 10:30 AM EDT Respiratory Rate 20 02/14/2025 10:30 AM EDT Oxygen Saturation 98% 02/14/2025 10:30 AM EDT Inhaled Oxygen Concentration - - Weight 66.2 kg (146 lb) 02/14/2025 10:30 AM EDT Height 156 cm (5' 1.42 ) 02/14/2025 10:30 AM EDT Body Mass Index 27.21 02/14/2025 10:30 AM EDT documented in this encounter Plan of Treatment Scheduled Referrals Name Type Priority Associated Diagnoses Orde r Schedule Referral to Nutrition Therapy Outpatient Referral Routine Class 1 obesity without serious comorbidity with body mass index (BMI) of 30.0 to 30.9 in adult, unspecified obesity type Expected: 02/14/2025 (Approximate), Expires: 02/14/2026 documented as of this encounter Procedures Procedure Name Priority Date/Time Associated Diagnosis Comments CHLAMYDIA/TRICHOMON /NEISSERIA GONORRHOEAE, PCR, URINE Routine 02/14/2025 11:10 AM EDT Encounter for health-related screening documented in this encounter Results * Chlamydia/N. Gonorrhoeae, PCR, Urine (02/14/2025 11:10 AM EDT) CT PCR, Urine NOT DETECTED Not Detect. [facility] Comment:A not detected test result does not exclude the possibilityof infection because test results can be affected byimproper specimen collection, concurrent antibiotic therapy,or the number of organisms in the specimen which may bebelow the sensitivity of the test. As with many diagnostictests, results from the Xpert CT/NG assay should beinterpreted in conjunction with other laboratory andclinical data available to the clinician.The Xpert CT/NG assay should not be used for the evaluationof suspected sexual abuse or for other medico-legalindications. Additional testing is recommended in anycircumstance when false positive or false negative resultscould lead to adverse medical, social or psychologicalconsequences. NG PCR, Urine NOT DETECTED Not Detect. [facility] Comment:A not detected test result does not exclude the possibilityof infection because test results can be affected byimproper specimen collection, concurrent antibiotic therapy,or the number of organisms in the specimen which may bebelow the sensitivity of the test. As with many diagnostictests, results from the Xpert CT/NG assay should beinterpreted in conjunction with other laboratory andclinical data available to the clinician.The Xpert CT/NG assay should not be used for the evaluationof suspected sexual abuse or for other medico-legalindications. Additional testing is recommended in anycircumstance when false positive or false negative resultscould lead to adverse medical, social or psychologicalconsequences. Urine (Urine, Random) 02/14/2025 11:10 AM EDT 02/14/2025 2:34 PM EDT us Melida Quarles MD LAB URINE ORDERABLES Final Re sult [facility] [address] [place] [phone] documented in this encounter Visit Diagnoses Diagnosis Class 1 obesity without serious comorbidity with body mass index (BMI) of 30.0 to 30.9 in adult, unspecified obesity type- Primary Encounter for immunization Encounter for health-related screening documented in this encounter Additional Health Concerns Assessment Noted Time PHQ-9 Depression Total Score: 2 10/19/19 25 9:56 AM EDT documented as of this encounter Care Teams Storage Administrator Relationship Specialty Start Date End Date Melida Quarles MD [address] [place] [address] PCP - General Family Medicine 10/12/21 documented as of this encounter
[2025-02-14 16:12] LABS: CT PCR Urine NOT DETECTED (Not Detect.); NG PCR Urine NOT DETECTED (Not Detect.)
--- OUTSIDE RECORDS SUMMARY | 2025-02-14 16:22 | XMS_ITS | Encounter Summary ---
Author Organization [employer] Address [address] [facility] [address] [place] [address] Care Team Providers Care Network Administrator Name Role Phone Melida Quarles MD Primary Care Provider [phone] Reason for Visit * Reason Onset Date Comments Appointment Request 08/27/2024 Encounter Details Date Type Department Care Team ([facility] st Contact Info) Description 08/27/2024 Telephone [facility] MEDICINE [address] [place] [address] Melida Quarles MD [address] [place] [address] Appointment Request Social History Tobacco Use Types [...] encounter Miscellaneous Notes * Telephone Encounter - Nelson Jamison - 08/27/2024 10:59 AM EDT Tc from pt requesting to R/s appt from 08/25/24. Contact pt at [phone] documented in this encounter Plan of Treatment Not on file documented as of this encounter Visit Diagnoses Not on filedocumented in this encounter Additional Health Concerns Assessment Noted Time PHQ-9 Depression Total Score: 2 11/09/19 23 11:13 AM EDT documented as of this encounter Care Teams Network Administrator Relationship Specialty Start Date End Date Melida Quarles MD [address] [place] [address] PCP - General Family Medicine 10/12/21 documented as of this encounter
--- OUTSIDE RECORDS SUMMARY | 2025-02-14 16:22 | XMS_ITS | Clinical Summary ---
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 30 tablet 3 05/28/2023 Active oxyCODONE-aceta minophen (PERCOCET) 5-325 mg per tablet Take 1 tablet by mouth every 4 (four) hours as needed for pain (specific location in comments). Partial fill ok 30 tablet 05/28/2023 Active docusate sodium (COLACE) 100 MG capsule TAKE 1 CAPSULE BY MOUTH TWICE A DAY 30 capsule 1 06/05/2023 Active Active Problems Problem Noted Date Diagnosed Date Macromastia 05/13/2023 Neck pain 05/13/2023 Intertrigo 05/13/2023 Upper back pain 05/13/2023 Immunizations Immunization Administration Dates Next Due COVID-19 (Pre-03/10) Moderna Vaccine, Bivalent 6mo+ 03/27/2022 COVID-19 (Pre-03/10) Pfizer Vaccine, mRNA, PF 06/06/2021,05/15/2021 Hepatitis B Adult 09/13/2003,2001,09/30/19 02 INFLUENZA, SPLIT VIRUS, TRIVALENT PF 03/10/2024 Influenza, Unspecified Formulation 02/17/2023,,05/25/2021 MMR 08/23/2005,09/13/2003 Tdap 07/20/2013 Varicella 07/20/2013,06/17/2012 Social History Tobacco Use Types Packs/Day Years Used Date Smoking Tobacco: Never Smokeless Tobacco: Never Tobacco Cessation:Counseling Given: Not Answered Alcohol Use Standard Drinks/Week Comments Never 0 (1 standard drink = 0.6 oz pur e alcohol) Education Answer Date Recorded Are you interested in more education? Not on jeannie e 09/14/2022 Are you concerned about learning? Not on file 09/14/2022 No 09/14/2022 No 09/14/2022 Digital Access Answer Date Recorded No 10/15/2022 No 10/15/2022 Reliable internet access at home? Not on file 10/15/2022 Device with a working camera? Not on file Intimate Partner Violence Answer Date R ecorded Are you denied basic needs s uch as food, clothing, or medical care? No 06/19/2023 In the past 12 months have y ou been in a relationship with a person who hurts, threatens, or tries to control you? No 06/19/2023 Are you denied basic needs s uch as food, clothing, or medical care? No 06/19/2023 In the past 12 months have y ou been in a relationship with a person who hurts, threatens, or tries to control you? No 06/19/2023 Comments No Sex and Gender Information Value Date Recorded Sex Assigned at Female 12/14/2021 10:44 AM EDT Legal Sex Female 11:02 AM EST Gender Identity Female 12/14/2021 10:44 AM EDT Sexual Orientation Not on file Last Filed Vital Signs Vital Sign Reading Time Taken Comments Blood Pressure 107/77 06/19/2023 12:15 PM EST Pulse 118 06/19/2023 12:30 PM EST Temperature 36.5 C (97.7 F) 06/19/2023 10:36 AM EST Respiratory Rate 21 06/19/2023 12:30 PM EST Oxygen Saturation 98% 06/19/2023 12:30 PM EST Inhaled Oxygen Concentration - - Weight 68.9 kg (152 lb) 06/19/2023 6:17 AM EST Height 154.9 cm (5' 1 ) 06/19/2023 6:17 AM EST Body Mass Index 28.72 06/19/2023 6:17 AM EST Plan of Treatment Health Maintenance Due Date Last Done Comments DEPRESSION SCREENING 2013 SMOKING Hx and SMOKELESS TOBACCO SCREENING 2014 HPV VACCINES (1 - 3-dose series) 2016 CHLAMYDIA SCREENING 2017 MENINGOCOCCAL VACCINES (B) (1 of 2 - Standard) 2017 HEPATITIS C SCREENING 08/02/2019 HIV ONE-TIME SCREENING (18-65 YEARS) 08/02/2019 Adult Td,Tdap Booster 07/21/2023 07/20/2013 INFLUENZA VACCINE (#1) 2024 , 02/17/2023, 03/29/2022, Additional history exists COVID-19 VACCINE ( season) 2025 03/27/2022, 06/06/2021, 06/06/2021, Additional history exists PAP SMEAR 04/24/2026 04/24/2023 HEPATITIS A VACCINES Aged Out No long er eligible based on patient's age to complete this topic HIB VACCINES Aged Out No longer eligi ble based on patient's age to complete this topic MENINGOCOCCAL VACCINES (ACWY) Aged Out No longer eligible based on patient's age to complete this topic PNEUMOCOCCAL VACCINES (0-49 years) Aged Out No longer eligible based on patient's age to complete this topic Medical Devices Not on file Insurance HEALTH SAFETY NET PARTIAL HEALTH SAFETY NET PARTIAL HEALTH SAFETY NET PARTIAL HEALTH SAFETY NET PARTIAL HEALTH SAFETY NET PARTIAL HEALTH SAFETY NET PARTIAL HEALTH SAFETY NET PARTIAL HEALTH SAFETY NET PARTIAL [facility] S[employer] NET PARTIAL Advance Directives For more information, please contact: [phone] (9AM - 5PM [facility], Friday-Friday) Documents on File Type Date Recorded Patient Tire Setter Expl anation Healthcare Proxy 06/20/2023 12:02 PM * Full Code (Latest Code Status on File) Date Activated Date Inactivated Comments 06/19/2023 6:07 AM Question Answer Comments Code Status Confirmed With: Patient Care Teams Pantry Steward/Stewardess Relationship Specialty Start Date End Date Melida Quarles MD PCP - General Family Medicine 02/19/23 Additional Source Comments The information contained in this document represents components of the legal health record. It is not the complete legal health record.[facility]
--- OUTSIDE RECORDS SUMMARY | 2025-02-14 16:22 | XMS_ITS | Encounter Summary ---
Author Organization [employer] Address [address] [facility] [address] [place] [address] Care Team Providers Care Chief Embalmer Name Role Phone Melida Quarles MD Primary Care Provider [phone] Encounter Details Date Type Department Care Team (Latest Contact Info) Description 02/14/2025 Travel Social History Tobacco Use Types Packs/Day [...] as of this encounter Plan of Treatment Not on file documented as of this encounter Visit Diagnoses Not on filedocumented in this encounter Additional Health Concerns Assessment Noted Time PHQ-9 Depression Total Score: 2 10/19/19 25 9:56 AM EDT documented as of this encounter Care Teams Chief Embalmer Relationship Specialty Start Date End Date Melida Quarles MD [address] [place] [id number] PCP - General Family Medicine 10/12/21 documented as of this encounter
--- OUTSIDE RECORDS SUMMARY | 2025-02-14 16:22 | XMS_ITS | Clinical Summary ---
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 1 each 1 07/22/19 25 Active phentermine (Adipex-P) 37.5 MG tabletIndicatio ns:Class 1 obesity without serious comorbidity with body mass index (BMI) of 30.0 to 30.9 in adult, unspecified obesity type Take 1 tablet (37.5 mg) by mouth before breakfast. 28 tablet 1 02/15/20 25 Active senna-docusate sodium (Senokot-S) 8.6-50 MG tablet Take 2 tablets by mouth if needed at bedtime for constipation . 60 tablet 1 02/15/20 25 Active polyethylene glycol, PEG, 3350 (MiraLax) 17 GM/SCOOP powder Take 17 g by mouth Once per day. 527 g 2 02/15/20 25 Active phentermine (Adipex-P) 37.5 MG tablet Take 1 tablet (37.5 mg) by mouth before breakfast. 28 tablet 1 01/13/20 25 025 Discontinued Active Problems Problem Noted Date Diagnosed Date Class 1 obesity without seri ous comorbidity with body mass index (BMI) of 30.0 to 30.9 in adult 09/20/2024 Assessment & Plan (10/18/2024 10:48 AM EDT): Patient has been attempting weight loss with phentermine since July 21, 2024. Despite 2.5 months of treatment, she has only lost 2 pounds, indicating an insufficient clinical response. She previously tried phentermine and topiramate but experienced side effects with topiramate, including memory issues and numbness. The patient has been adherent to phentermine treatment. A prior authorization for Zepbound was denied due to insufficient duration of phentermine trial. Plan: - Prescribe phentermine at a higher dose to assess for efficacy - Informed patient of potential side effects including palpitations and anxiety - Instructed to take medication in the morning to avoid sleep interference - Advised to discontinue and report if experiencing palpitations, dry mouth, hypertension, or anxiety - Send prescription to [facility] pharmacy - Follow-up in 3 months to reassess weight and medication efficacy - Monitor blood pressure (most recent reading 128/70) Assessment & Plan (09/20/2024 9:55 AM EDT): Reviewed indications for pharmacotherapy with patient, which is treatment for patient w/ obesity or a patient with a BMI > 27 w/ CV risk factors who have failed lifestyle modifications alone. These are always prescribed in combination with ongoing lifestyle modification; and will be titrated up from the lowest dose. Will start patient on Zepbound, given know efficacy. Reviewed mechanism of action with patient. Discussed side effects with patient: nausea, vomiting, diarrhea & risk of pancreatitis. No contraindications identified: , hx of pancreatitis, hx of medullary thyroid cancer or MEN 2. Patient has prior trial of phentermine/Topamax with inadequate response. Discussed calorie deficit, recommended reduction of 20-30% of maintenance calories; medical billing representative referral offered. Recommended to decrease soda and sugary beverage consumption. Recommended at least 20 g per meal of protein to assist with satiety. Recommended at least 150 min/week of moderate intensity exercise. Colitis 09/16/2024 Lipoma of back 09/16/2024 Abnormal vaginal bleeding 09/16/2024 Subcutaneous mass of back 04/14/2024 Assessment & Plan (04/14/2024 9:17 AM EST): Left upper back with subcutaneous mobile mass likely lipoma 6.0 cm x 6.5 cm. , missed appt for surgery, needs new referral to surgery, send to [facility] Cystitis 03/17/2024 Assessment & Plan (03/17/2024 7:40 PM EDT): No evidence of UTI, will order culture. RO IC. Treat with Pyridium, will call back prn if she needs abs Advised re increased water intake, avoid caffeine, nicotine, spicy foods, artificial sweeteners Fu with PCP Cervical cancer screening 04/24/2023 Assessment & Plan (05/02/2023 2:36 PM EST): Adult female for [employer] physical: Normal Exam, no sign of infections [...] Problem Noted Date Diagnosed Date Resolved Date Amenorrhea 04/14/2024 09/16/2024 Assessment & Plan (04/14/2024 9:29 AM EST): Negative UA , ordering lab work for further evaluation. Follow up if menses has not begun after 2 months from today. Underweight 04/14/2024 04/14/2024 Assessment & Plan (04/14/2024 9:13 AM EST): Discussed calorie deficit, recommended reduction of 20-30% of maintenance calories; medical billing representative referral offered. Recommended to decrease soda and sugary beverage consumption. Recommended at least 20 g per meal of protein to assist with satiety. Recommended at least 150 min/week of moderate intensity exercise. Overweight 04/14/2024 09/20/2024 Assessment & Plan (04/14/2024 9:43 AM EST): Discussed calorie deficit, recommended reduction of 20-30% of maintenance calories; medical billing representative referral offered. Recommended to decrease soda and sugary beverage consumption. Recommended at least 20 g per meal of protein to assist with satiety. Recommended at least 150 min/week of moderate intensity exercise. Encounters Date Type Department Care Team Description 02/14/2025 10:15 AM EDT Office Visit [facility] [address] [place] [address] Melida Quarles MD Class 1 obesity without serious comorbidity with body mass index (BMI) of 30.0 to 30.9 in adult, unspecified obesity type (Primary Dx); Encounter for immunization; Encounter for health-related screening 02/14/2025 Travel 02/07/2025 Travel 11/16/2024 Refill [facility] [address] [place] [address] Melida Quarles MD from Last 3 Months Immunizations Immunization Administration Dates Next Due DTaP 08/23/2005, 4,02/09/2002,2001,2001 Hep B Immune Globulin 09/13/2003,2001 Hep B, adult 09/13/2003,2001,2001 HiB, unspecified 09/13/2003,2001 Hib (PRP-T) 2001 IPV 08/23/2005, 2,2001,2001 Influenza injectable quadriv alent preservative free 02/17/2023,03/29/2022,06/06/2020 Influenza, Unspecified 03/29/2022,05/25/2021 Influenza, seasonal, injecta ble, preservative free 02/14/2025,03/10/2024 MMR 08/23/2005,09/13/2003 Moderna Covid-19 Vaccine 6+ Bivalent [...] Mass Index 27.21 02/14/2025 10:30 AM EDT Plan of Treatment Health Maintenance Due Date Last Done Comments Dental Oral Exam 2001 Dental Prophylaxis 2001 Dental X-Ray: Bitewings 2001 Dental X-Ray: Full Mouth 2001 Family Planning (PISQ) 2016 Meningococcal B Vaccine (1 of 2 - Standard) 2017 Hepatitis C Screening 08/02/2019 COVID-19 Vaccine ( season) 2025 03/27/2022, 06/06/2021, 05/15/2021 Chlamydia and Gonorrhea Screening 01/21/2025 01/22/2024, 11/27/2021 Alcohol/Substance Use Screening 04/14/2025 04/14/2024 SDOH Screening 09/13/2025 09/13/2024 HPV Vaccines (1 - 3-dose series) 09/20/2025 Postponed from 2016 (Patient Refused) Depression Screening 10/18/2025 10/18/2024, 10/19/19 25 Disability Screening 02/07/2026 02/07/2025 Tobacco Screening 02/14/2026 02/14/2025 Pap Smear 04/24/2026 04/24/2023 Lipid Panel 02/06/2027 02/06/2022 DTaP/Tdap/Td Vaccines (8 - Td or Tdap) [...] Screening Completed 02/06/2022, 11/27/2021 Influenza Vaccine Completed 02/14/2025, , 02/17/2023, Additional history exists Hepatitis A Vaccines Aged Out No long er eligible based on patient's age to complete this topic Meningococcal Vaccine Aged Out No guero alicia eligible based on patient's age to complete this topic Pneumococcal Vaccine: Pediatrics (0 to 5 Years) and At-Risk Patients (6 to 49) Years Aged Out No longer eligible based on patient's age to complete this topic RSV under 20 months Aged Out No longe r eligible based on patient's age to complete this topic Rotavirus Vaccines Aged Out No longer eligible based on patient's age to complete this topic Procedures Procedure Name Priority Date/Time Associated Diagnosis Comments CHLAMYDIA/TRICHOMONA S/NEISSERIA GONORRHOEAE, PCR, URINE Routine 02/14/2025 11:10 AM EDT Encounter for health-related screening CHLAMYDIA/N. GONORRHOEAE RNA, TMA, UROGENITAL Routine 01/22/2024 4:28 PM EDT Intermenstrual bleeding PAP SMEAR Routine 04/24/2023 2:54 PM EST Cervical cancer screening HIV 1/2 ANTIGEN/ANTIBODY, FOURTH GENERATION W/RFL Routine 02/06/2022 8:46 AM EDT LIPID PANEL, STANDARD Routine 02/06/2022 8:46 AM EDT from Last 3 Months or Most Recently Relevant to Health Maintenance Results * Chlamydia/N. Gonorrhoeae, PCR, Urine (02/14/2025 11:10 AM EDT) CT PCR, Urine NOT DETECTED Not Detect. [facility] Comment:A not detected test result does [...] NG PCR, Urine NOT DETECTED Not Detect. [facility] Comment:A not detected test result does [...] AM EDT 02/14/2025 2:34 PM EDT us Mleida Quarles MD LAB URINE ORDERABLES Final Re sult [facility] [address] [place] [address] [phone] * Chlamydia/N. Gonorrhoeae RNA, TMA, Urogenitial (01/22/2024 4:28 PM EDT) CT PCR NOT DETECTED Not Detect. [facility] Comment:A not detected test result does [...] psychologicalconsequences. NG PCR NOT DETECTED Not Detect. [facility] Comment:A not detected test result does [...] 4:28 PM EDT 01/22/2024 5:37 PM EDT [facility] - 01/23/2024 2:45 AM EDT Vaginal us Natacha Hall MD LAB MICROBIOLOGY - GENERAL OR DERABLES Final Result [facility] [address] [place] [phone] * Pap Smear (04/24/2023 2:54 PM EST) Swab Cervical swab / Unknown 04/24/2023 2:54 PM EST 04/28/2023 8:50 AM EST [facility] - 04/30/2023 10:30 AM EST ----- ------- Name: Lynette Mcguire Age/Sex: 22/F : 2000 Unit#: [id number] Attend Dr: Re04/24/23 Status: PRE REF Location: [facility] Disch: ----- ------- SPEC : [id number] RECD: 04/28/23 STATUS: MANOLO WING NUM: [id number] MONTRELL: 04/24/[address]: Melida Quarles MD ENTERED: 04/28/23 SP TYPE: Pap Smr OTHR DR: ORDERED: Pap Smear Interpretation Satisfactory for evaluation. Coccobacilli consistent with shift in vaginal nallely. Mild inflammation. Negative for intraepithelial lesion or malignancy. Clinical Information LMP: 04/11/2023 Previous PAP test: Unknown date/findings Material Received ThinPrep-Cervical ----- ------- Signed (signature on file) BJ Hunt (ASCP) 04/30/23 1030 ----- ------- END OF REPORT us Melida Quarles MD LAB CYTOLOGY ORDERABLES Final Result [facility] [address] [place] [address] [phone] * HIV 1/2 ANTIGEN/ANTIBODY,FOURTH GENERATION W/RFL (02/06/2022 8:46 AM EDT) HIV-1/2 ANTIGEN AND ANTIBODIES, 4TH GENERATION W/ REFLEX NON-REACT [facility] NON-REACT [facility] Comment: HIV-1 antigen and HIV-1/HIV-2 antibodies were not detected. There is no laboratory evidence of HIV infection. PLEASE NOTE: This information has been disclosed to you from records whose confidentiality may be protected by state law. If your state requires such protection, then the state law prohibits you from making any further disclosure of the information without the specific written consent of the person to whom it pertains, or as otherwise permitted by law. A general authorization for the release of medical or other information is NOT sufficient for this purpose. For additional information please refer to http://CircleBuilder.HedgeChatter/faq/WRA214 (This link is being provided for informational/ educational purposes only.) The performance of this assay has not been clinically validated in patients less than 2 years old. 02/06/2022 8:46 AM EDT us Melida Quarles MD LAB BLOOD ORDERABLES Final Re sult Performing Organization Address [facility] Co de Phone Number [facility] [address] * (ABNORMAL) LIPID PANEL, STANDARD (02/06/2022 8:46 AM EDT) Chol/HDLC Ratio 3.1 <5.0 (calc) [facility] Cholesterol, Total 134 <200 mg/dL [facility] HDL Cholesterol 43(L) > OR = 50 mg/dL [facility] LDL Cholesterol 78 mg/dL (calc) [facility] Comment: Reference range: <100 Desirable range <100 mg/dL for primary prevention; <70 mg/dL for patients with CHD or diabetic patients with > or = 2 CHD risk factors. LDL-C is now calculated using the Bandar-Kay calculation, which is a validated novel method providing better accuracy than the Friedewald equation in the estimation of LDL-C. Bandar WILLIS et al. JOSE M. 2013;310(19): 3036-9533 (http://education.Cortexica.Qustreet/faq/LVC054) Non-HDL Cholesterol 91 <130 mg/dL (calc) [facility] Comment: For patients with diabetes plus 1 major ASCVD risk factor, treating to a non-HDL-C goal of <100 mg/dL (LDL-C of <70 mg/dL) is considered a therapeutic option. Triglycerides 44 <150 mg/dL [facility] 02/06/2022 8:46 AM EDT us Melida Quarles MD LAB BLOOD ORDERABLES Final Re sult [facility] [address] from Last 3 Months or Most Recently Relevant to Health Maintenance Insurance [place] [facility] MEDICAID STAND ADULT Care Teams Rn Intern Relationship Specialty Start Date End Date Melida Quarles MD [address] [place] [address] PCP - General Family Medicine 10/12/21
--- OUTSIDE RECORDS SUMMARY | 2025-02-14 16:22 | XMS_ITS | Encounter Summary ---
Author Organization [facility] Address [address] [place] [phone] Phone Care Team Providers Care Vp Software Engineering Name Role Phone Melida Quarles MD Primary Care Provider [phone] Encounter Details Date Type Department Care Team (Late st Contact Info) Description 06/19/2023 Procedure Pass OR Admitting Dept - Virtual Department [address] [place] [address] Social History Tobacco Use Types Packs/Day Years Used Date Smoking Tobacco: Never Smokeless Tobacco: Never Alcohol Use Standard Drinks/Week Comments Never 0 [...] AM EDT Sexual Orientation Not on file documented as of this encounter Plan of Treatment Not on file documented as of this encounter Visit Diagnoses Not on filedocumented in this encounter Care Teams Vp Software Engineering Relationship Specialty Start Date End Date Melida Quarles MD PCP - General Family Medicine 02/19/23 documented as of this encounter Additional Source Comments The information contained in this document represents components of the legal health record. It is not the complete legal health record.[facility]
--- OUTSIDE RECORDS SUMMARY | 2025-02-14 16:22 | XMS_ITS | Encounter Summary ---
Author Organization [employer] Address [address] [place] [address] Care Team Providers Care Logistics Administrator Name Role Phone Melida Quarles MD Primary Care Provider [phone] Reason for Visit * Reason Onset Date Comments Appointment Request 07/16/2024 Encounter Details Date Type Department Care Team ([facility] st Contact Info) Description 07/16/2024 Telephone [facility] [address] [place] [address] Melida Quarles MD [address] [place] [address] Appointment Request Social History Tobacco Use Types [...] documented as of this encounter Care Teams Logistics Administrator Relationship Specialty Start Date End Date Melida Quarles MD [address] [place] [address] PCP - General Family Medicine 10/12/21 documented as of this encounter
--- OUTSIDE RECORDS SUMMARY | 2025-02-14 16:22 | XMS_ITS | Encounter Summary ---
Author Organization [employer] Address [address] [facility] [address] [place] [address] Care Team Providers Care On Air Personality Name Role Phone Melida Quarles MD Primary Care Provider [phone] Reason for Visit * Reason Onset Date Comments Med Refill 11/16/2024 Encounter Details Date Type Department Care Team ([facility] st Contact Info) Description 11/16/2024 Refill [facility] [address] [place] [address] Melida Quarles MD [address] [place] [address] Social History Tobacco Use Types Packs/Day Years [...] documented as of this encounter Care Teams On Air Personality Relationship Specialty Start Date End Date Melida Quarles MD [address] [place] [phone] PCP - General Family Medicine 10/12/21 documented as of this encounter
== END 2025-02-14 14:32 | disposition home or self-care (01) ==
LOC: HO.HHCLNP 14:31
PROVIDERS: Visit Provider Family Medicine
DX: Z11.3 Encounter for screening for infections with a predominantly sexual mode of transmission (principal)
CPT/HCPCS: 87491; 87591

== ENCOUNTER 2025-02-25 16:19 | Outpatient (REF) | payer MEDICAID, SELFPAY ==
[2025-02-26 08:54] LABS: Follicle Stimulating Hormone 14.2 mIU/mL
[2025-03-12 02:39] LABS: Estradiol Free 4.06 pg/mL; Estradiol, Ultrasensitive 207 pg/mL
== END 2025-02-25 16:20 | disposition home or self-care (01) ==
LOC: HO.LAB 16:19
PROVIDERS: PCP Family Medicine; Visit Provider Family Medicine
DX: N91.2 Amenorrhea, unspecified (principal)
CPT/HCPCS: 36415; 82670; 82681; 83001; 83002; 84146; 84443; 84702